=== PATIENT | male | born 1970 | race Caucasian/White ===

== ENCOUNTER 2018-07-23 18:21 | Inpatient (IN) | payer BC, MEDICAID, MEDICARE ==
[~2018-07-23] VITALS: Ht 188 cm; Wt 133.1 kg
[~2018-07-23 18:21] MED LIST: ACET-683 PO; ACET1TAB55 PO; ACYC400T PO; ALBU17IN INH; ALDA25TA2 PO; ALLO10TA PO; AMLO10TA5 PO; AMOX500T2 PO; ASPI1TAB PO; AUGM875T28 PO; BUME1TAB3 PO; BYST5TAB2 PO; DILA2TAB6 PO; FLOM0.4C39 PO; HYDR-3910 PO; HYDR-3911 PO; HYDR2TAB2 PO; MAGN1TAB25 PO; METO1TAB33 PO; METO1TAB7 PO; OMEP40CA2 PO; OXYC-404 PO; PRED5TA PO; PRIL20TA2 PO; PROBCAP4 PO; PROG1CAP10 PO; SIRO1TAB4 PO; VITA200015 PO
[2018-07-23] MEDS ORDERED: GABA-845 PO (18:52)
[2018-07-23] MEDS ORDERED: HYDR25TAB PO (18:52)
[2018-07-23] MEDS ORDERED: MYCO1TAB PO (18:52)
[2018-07-23] MEDS ORDERED: NULO250I IV (18:52)
[2018-07-23] MEDS ORDERED: HYDR50TA PO (18:52)
[2018-07-23] MEDS ORDERED: METO1TAB7 PO (18:52)
[2018-07-23 19:34] LABS: HEMATOCRIT 35.3 % (42.0-52.0); HEMOGLOBIN 11.3 g/dl (13.5-17.5); LYMPH # 0.4 10^3/uL (1.5-4.5); LYMPH % 17.3 % (24.0-44.0); MEAN CORPUSCULAR HEMOGLOBIN 26.7 pg (27.0-33.0); MEAN CORPUSCULAR VOLUME 83.3 fl (80.0-96.0); MONO # 0.1 10^3/uL (0.0-0.8); MONO % 3.6 % (0.0-5.0); NEUTROPHILS # 1.8 10^3/uL (1.8-7.7); NEUTROPHILS % 78.2 % (36.0-66.0); PLATELET COUNT, AUTOMATED 104 10^3/uL (150-450); RED BLOOD COUNT 4.24 10^6/uL (4.30-6.10); WHITE BLOOD COUNT 2.3 10^3/uL (4.0-10.0)
[2018-07-23 19:57] LABS: ALBUMIN 2.9 GM/DL (3.2-5.2); BILIRUBIN,DIRECT 0.2 MG/DL (0.0-0.2); BILIRUBIN,TOTAL 0.4 MG/DL (0.2-1.0); CALCIUM LEVEL 6.6 MG/DL (8.5-10.1); CREATININE FOR GFR 4.95 MG/DL (0.70-1.30); GLOMERULAR FILTRATION RATE 13.3 (>56); TOTAL PROTEIN 5.3 GM/DL (6.4-8.2)
[2018-07-23 20:54] LABS: INR 1.1; PROTHROMBIN TIME 14.3 SECONDS (12.1-14.4)
[2018-07-23 20:55] LABS: PARTIAL THROMBOPLASTIN TIME 43.4 SECONDS (25.4-37.6)
[2018-07-23] MEDS ORDERED: HYDROMORPHONE HCL 0.5 MG/ 0.5 ML SYRINGE (J1170 PER 1) IV PRN (21:15)
[2018-07-23] MEDS ORDERED: ONDANSETRON 4MG/2ML VIAL (J2405) IV ONE (21:15)
[2018-07-23] MEDS: GASTROGRAFIN SOLUTION 30ML PO SCH ×2 (21:30→21:56)
[2018-07-23] MEDS ORDERED: NS 1,000 ML IV ONE (21:30)
--- NOTE | 2018-07-24 00:40 | REPVR ---
EXAM: CT Abdomen and Pelvis Without Contrast EXAM DATE/TIME: 07/23/2018 10:50 PM CLINICAL HISTORY: 48 years old, male; Pain and signs and symptoms; Nausea and vomiting and other: Diarrhea; Abdominal pain; Generalized; Additional info: Abd pain, n/v/d, febrile, HX of renal transplant TECHNIQUE: Axial computed tomography images of the abdomen and pelvis without contrast. All CT scans at this facility use at least one of these dose optimization techniques: automated exposure control; mA and/or kV adjustment per patient size (includes targeted exams where dose is matched to clinical indication); or iterative reconstruction. Coronal and sagittal reformatted images were created and reviewed. COMPARISON: CT ABD PELVIS W/O CONTRAST 05/22/2016 11:51 AM FINDINGS: Limitations: Examination is limited by motion artifact. Lower thorax: Patchy ground glass opacities in the lung bases bilaterally. ABDOMEN: Liver: Multiple circumscribed cystic lesions measuring up to 5.2 cm. Gallbladder and bile ducts: Vicarious excretion of contrast in the gallbladder. No gall bladder wall thickening. No ductal dilation. Pancreas: Normal. No ductal dilation. Spleen: Normal. No splenomegaly. Adrenals: Normal. No mass. Kidneys and ureters: [place] kidneys are not visualized. Focal density in the left renal bed just medial to the spleen measuring 3.3 x 2.3 cm. Stomach and bowel: Normal. No obstruction. No mucosal thickening. Negative for colonic diverticulitis. Appendix: Appendix is normal. PELVIS: Bladder: Unremarkable as visualized. Reproductive: Prostate is normal in size. Transplant kidney: Status post transplant kidney in the right iliac fossa. Mild nonspecific perinephric stranding. No hydronephrosis. No renal stones. No perinephric fluid collections. ABDOMEN and PELVIS: Intraperitoneal space: Normal. No free air. No significant fluid collection. Bones/joints: Moderate degenerative spine. Soft tissues: There is dependent subcutaneous edema. Post surgical changes in the ventral right lower quadrant. Interstitial lateral ventral abdominal hernia (Spigelian hernia) containing bowel. No evidence of incarcerated bowel. Vasculature: Moderate calcified atherosclerotic disease. Lymph nodes: Normal. No enlarged lymph nodes. IMPRESSION: Status post transplant kidney in the right iliac fossa. Polycystic liver. No followup is necessary. Interstitial lateral ventral abdominal hernia (Spigelian hernia) containing bowel. Unchanged from prior. Focal density in the left renal bed just medial to the spleen. Fluid collection versus postop changes. Patchy ground glass opacities in the lung bases bilaterally. Pneumonia versus pulmonary edema versus hemorrhage versus pneumonitis. Additional findings as described. Electronically signed by: Allen Nuno On 07/24/2018 00:40:06 AM
[2018-07-24] MEDS ORDERED: PIPERACILLIN/TAZOBACTAM SOD 2.25 GM in D5W MINI-BAG PLUS 50 ML IV ONE (01:30)
[2018-07-24] MEDS ORDERED: NS 1,000 ML IV ONE (01:45)
[2018-07-24] MEDS ORDERED: CALCIUM GLUCONATE 1,000 MG in D5W MINI-BAG PLUS 100 ML IV ONE (01:45)
[2018-07-24] MEDS ORDERED: LR 1,000 ML IV SCH (01:45)
[2018-07-24] MEDS ORDERED: NS 1,000 ML IV SCH ×2 (01:45→08:25)
[2018-07-24] MEDS ORDERED: IPRATROPIUM 0.5MG/ALBUTEROL 2.5MG INH SOL UD 3ML (DUONEB)(J7620) NEB PRN (01:45)
[2018-07-24] MEDS ORDERED: POTASSIUM CHLORIDE 10 MEQ SR TABLET PO SCH (02:00)
[2018-07-24] MEDS ORDERED: VENTAER INH (02:12)
[2018-07-24] MEDS ORDERED: METO1TAB87 PO (02:12)
[2018-07-24] MEDS ORDERED: NEUR300C PO ×2 (02:12)
[2018-07-24] MEDS ORDERED: HYDR25TA PO (02:12)
[2018-07-24] MEDS ORDERED: AMLO25TA PO (02:12)
[2018-07-24] MEDS ORDERED: DILA2TAB6 PO (02:16)
[2018-07-24] MEDS ORDERED: FLUO1CRE2 EX (02:18)
[2018-07-24] MEDS ORDERED: FLON1SPR (02:18)
[2018-07-24] MEDS ORDERED: FLUO1CRE2 TOP (02:24)
[2018-07-24] MEDS ORDERED: LOTRCRE TOP (02:24)
[2018-07-24] MEDS ORDERED: COLA100C5 PO (02:24)
[2018-07-24] MEDS ORDERED: FURO20TA2 PO (02:24)
[2018-07-24] MEDS ORDERED: PROBCAP4 PO (02:24)
[2018-07-24] MEDS ORDERED: VITA10002 PO (02:24)
[2018-07-24] MEDS ORDERED: CALC500C16 PO (02:26)
[2018-07-24] MEDS ORDERED: HYDR25OI TOP (02:26)
[2018-07-24] MEDS ORDERED: ULOR80TA PO (02:26)
[2018-07-24] MEDS ORDERED: ZOFR4TAB16 PO (02:27)
[2018-07-24] MEDS ORDERED: FLUTICASONE PROP 0.05% NASAL SPRAY 16 GM (FLONASE) PRN (02:30)
[2018-07-24] MEDS ORDERED: CALCIUM CARBONATE 500 MG CHEW U/D PO PRN (02:30)
[2018-07-24] MEDS: DOXYCYCLINE HYCLATE 100 MG in D5W MINI-BAG PLUS 100 ML IV SCH ×2 (03:20→16:12)
[2018-07-24] MEDS ORDERED: AZITHROMYCIN INJ 500 MG, VIAL MATE ADAPTER 1 EACH in D5W 250 ML IV SCH (05:00)
[2018-07-24] MEDS: cefTRIAXone SOD 1 GM in D5W MINI-BAG PLUS 50 ML IV SCH (05:31)
[2018-07-24] MEDS ORDERED: HEPARIN SOD (PORCINE) 5000 UNITS/ML VIAL SC SCH (06:00)
--- NOTE | 2018-07-24 07:42 | HPE ---
DATE OF ADMISSION: 07/24/2018 CHIEF COMPLAINT: Nausea, vomiting, abdominal pain, diarrhea for the past 2-1/2 to 3 weeks, followed by cough and shortness of breath for the previous 2-3 days. HISTORY OF PRESENT ILLNESS: The patient is a 48-year-old male with significant past medical history positive for kidney disease which resulted end stage renal disease, he was previously on dialysis, he is status post renal transplant 06/2015, now on immunosuppression. He is no longer on dialysis. He has a history of gout, hypertension, neuropathy. He presents to the emergency room with diffuse abdominal pain for the past 2-3 weeks with multiple episodes of nonbloody, nonbilious vomiting, decreased by mouth intake. He states that he is also having some loose stools. He saw his primary care physician who believed that he has a viral gastroenteritis. This continued to persists. He then subsequently developed a cough of whitish productive sputum and shortness of breath on exertion over the past two days. No sick contact. On presentation to the emergency room, he continues to complain of diffuse abdominal pain, nausea, vomiting, decreased by mouth intake. He has a lipase of 1700 and he also has what appears to be right lower lobe pneumonia on chest x-ray. PAST MEDICAL HISTORY: See history of present illness. PAST SURGICAL HISTORY: He has had renal transplant. Fistula placement. He had coiling of the kidneys. Hernia repair. ALLERGIES: 1. MORPHINE. SOCIAL HISTORY: He denies alcohol or illicit drug use. He is a former smoker. FAMILY HISTORY: Polycystic kidney disease. HOME MEDICATIONS: As per the EMR: - Tylenol - albuterol - Norvasc - NULOJIX infusions every month. He had this recently. - gabapentin - hydralazine - hydrochlorothiazide - Dilaudid - metoprolol - omeprazole - prednisone - tamsulosin - CellCept REVIEW OF SYSTEMS: A 12 point review of systems was completed, all of which were negative except those listed in the history of present illness. VITAL SIGNS ON ADMISSION: T-max of 101.3, pulse of 85, respirations of 23, satting at initially 86% on room air, with 2 liters nasal cannula 94%, blood pressure 141/61. PHYSICAL EXAMINATION: GENERAL: He is in mild distress secondary to abdominal pain. He is well nourished. HEAD: Normocephalic, atraumatic. EYES: Extraocular movements are intact. Pupils equal, round, reactive to light. NECK: Supple. No jugular venous pressure (JVP). LUNGS: There is right basilar crackles, no wheezing. CARDIOVASCULAR: Regular rate and rhythm. Normal S1 and S2. No murmurs, gallops, or rubs. ABDOMEN: Obese, tender to deep palpation, but rebound or guarding. Positive bowel sounds. EXTREMITIES: No pitting edema or calf tenderness. SKIN: Intact. No rashes, lesions or breakdowns. NEUROLOGICAL EXAM: Alert and oriented times three. No focal deficits appreciated on exam. LABS AND IMAGING: White count of 2.3, hemoglobin and hematocrit of 11/35, platelet count of 104. He has a history of thrombocytopenia from 05/27 his labs showed also a low platelet count. Coags within normal limits. Chemistries showed sodium of 133, potassium 3.0, BUN and creatinine of 59/4.95. His baseline creatinine appears to be around 2.2. Calcium is 6.6, corrected calcium is 7.5. LFTs within normal limits, proBNP of 154, lipase of 1600. CT of the abdomen and pelvis shows status post transplant kidney in the iliac fossa, polycystic liver. Interstitial lateral ventral abdominal hernia containing bowel. Unchanged from prior. Focal density in the left renal bed just medial to the spleen. Fluid collection versus postop changes. Patchy ground glass opacities in the lung bases bilaterally. Chest x-ray shows hazy bilateral changes worse on the right. ASSESSMENT/PLAN: The patient has sepsis secondary to community acquired pneumonia. He is immunocompromised. Will cover the patient with ceftriaxone and doxycycline. Sputum culture, urine legionella, urine pneumococcal antigen. Oxygen as needed. Albuterol as needed. Abdominal pain I likely believe this is secondary to pancreatitis. He has diffuse abdominal pain. Will fluid hydrate aggressively. He has already received a liter in the emergency room. Will also give another liter. Will place the patient on Lactated Ringer's on 150 mL/hour. Nothing by mouth, advance diet as tolerated. Dilaudid as needed for pain. Zofran as needed for nausea and vomiting. Will send a lipid profile to assess hypertriglyceridemia. He has no hypercalcemia. He has hypocalcemia. I will replenish with calcium and will replenish with potassium. For acute on chronic renal failure, this is likely secondary to dehydration and also in the setting of sepsis. Will send urine lytes. CT abdomen and pelvis noted. Will fluid hydrate. Will trend renal function. Documentation Engineer Dr. Ferris to see him in the morning. Will hold all nephrotoxic medications. For the rest of his chronic medical conditions, for benign prostatic hypertrophy (BPH) will continue Flomax. For hypertension will continue hydralazine. Will hold the diuretics in the setting of dehydration. For gout, will continue allopurinol. For hypertension also continue metoprolol. Positive for kidney disease status post transplant. Will continue his CellCept and prednisone. Supportive deep vein thrombosis (DVT) prophylaxis. Sequential compression devices (SCD). Gastrointestinal (GI) prophylaxis not indicated. Diet nothing by mouth, advance as tolerated.
[2018-07-24] MEDS ORDERED: POTASSIUM CHLORIDE 10 MEQ SR TABLET PO ONE (08:00)
[2018-07-24] MEDS ORDERED: ACETAMINOPHEN 500 MG TAB As Ordered ONE (08:10)
[2018-07-24] MEDS: CYANOCOBALAMIN 500 MCG TAB PO SCH (08:18)
[2018-07-24] MEDS: **hydrALAZINE HCL** 25 MG TAB PO SCH ×3 (08:18→22:03)
[2018-07-24] MEDS: LACTOBACILLUS ACIDOPHILUS CAP (BACID) PO SCH ×2 (08:18→17:33)
[2018-07-24] MEDS: METOPROLOL TART 25 MG TABLET PO SCH ×2 (08:18→22:03)
[2018-07-24] MEDS: TAMSULOSIN 0.4 MG CAP PO SCH (08:18)
[2018-07-24] MEDS: OMEPRAZOLE 20 MG CAP PO SCH (08:18)
[2018-07-24] MEDS: FEBUXOSTAT 40 MG TABLET (ULORIC) PO SCH (08:18)
[2018-07-24 08:19] VITALS: BP 168/75
[2018-07-24] MEDS: predniSONE 5 MG TAB PO SCH (08:19)
[2018-07-24] MEDS: MYCOPHENOLIC ACID 180 MG PO SCH ×2 (09:00→22:03)
[2018-07-24] MEDS ORDERED: ENTER DRUG NAME HERE (PATIENT'S OWN MED) PO SCH (09:00)
[2018-07-24] MEDS: ONDANSETRON 4MG/2ML VIAL (J2405) IV PRN (09:00)
[2018-07-24] MEDS ORDERED: GABAPENTIN 300 MG CAP PO SCH ×2 (09:00)
[2018-07-24 10:05] LABS: POTASSIUM RANDOM URINE 23.9 MEQ/L
[2018-07-24 10:57] LABS: CALCIUM LEVEL 6.8 MG/DL (8.5-10.1); CREATININE FOR GFR 4.4 MG/DL (0.70-1.30); GLOMERULAR FILTRATION RATE 15.2 (>56); POTASSIUM SERUM 3.5 MEQ/L (3.5-5.1)
[2018-07-24 10:59] LABS: CHOLESTEROL RISK RATIO 3.652 (<5)
--- NOTE | 2018-07-24 11:00 | REP ---
AP PORTABLE CHEST: 07/24/2018. COMPARISON: CT abdomen 07/23/2018, chest x-ray 05/19/2016. CLINICAL HISTORY: Cough, pneumonia. FINDINGS: There are bibasilar infiltrates, right greater than left. I do not see definite effusion. Mid and upper lung zones are clear. Heart size borderline. There is no vascular redistribution or edema. Aorta and airway intact. IMPRESSION: 1. Bibasilar infiltrates, more extensive right than left. No definite effusion. Mid and upper lung zones clear. 2. Borderline heart size. No pulmonary edema. Electronically Signed by Gallo Denton MD 07/24/2018 11:25 A
[2018-07-24 12:00] VITALS: BP 134/69
[2018-07-24 13:45] VITALS: BP 102/60
[2018-07-24] MEDS: ACETAMINOPHEN 500 MG TAB PO PRN (16:13)
[2018-07-24] MEDS: HYDROMORPHONE HCL 0.5 MG/ 0.5 ML SYRINGE (J1170 PER 1) IV PRN ×2 (16:39→22:12)
[2018-07-24 22:00] VITALS: BP 142/76
[2018-07-25] MEDS: HYDROMORPHONE HCL 0.5 MG/ 0.5 ML SYRINGE (J1170 PER 1) IV PRN ×4 (02:14→15:19)
[2018-07-25] MEDS: DOXYCYCLINE HYCLATE 100 MG in D5W MINI-BAG PLUS 100 ML IV SCH ×2 (04:28→15:11)
[2018-07-25] MEDS: ONDANSETRON 4MG/2ML VIAL (J2405) IV PRN ×3 (04:47→15:19)
[2018-07-25] MEDS: ACETAMINOPHEN 500 MG TAB PO PRN ×3 (04:48→23:16)
[2018-07-25] MEDS: cefTRIAXone SOD 1 GM in D5W MINI-BAG PLUS 50 ML IV SCH (05:49)
[2018-07-25 06:00] VITALS: BP 143/75
[2018-07-25 06:30] LABS: HEMATOCRIT 34.6 % (42.0-52.0); HEMOGLOBIN 10.9 g/dl (13.5-17.5); MEAN CORPUSCULAR HEMOGLOBIN 26.2 pg (27.0-33.0); MEAN CORPUSCULAR HGB CONC 31.5 g/dl (32.0-36.5); MEAN CORPUSCULAR VOLUME 83.2 fl (80.0-96.0); PLATELET COUNT, AUTOMATED 117 10^3/uL (150-450); RED BLOOD COUNT 4.16 10^6/uL (4.30-6.10); WHITE BLOOD COUNT 2.1 10^3/uL (4.0-10.0)
[2018-07-25 06:52] LABS: CALCIUM LEVEL 6.9 MG/DL (8.5-10.1); CREATININE FOR GFR 4.53 MG/DL (0.70-1.30); GLOMERULAR FILTRATION RATE 14.7 (>56); POTASSIUM SERUM 3.2 MEQ/L (3.5-5.1)
[2018-07-25] MEDS: **hydrALAZINE HCL** 25 MG TAB PO SCH ×2 (08:09→20:34)
[2018-07-25] MEDS ORDERED: INFLUENZA QUADRIVALENT PF VACCINE 0.5ML SYRINGE (90686) IM ONE (09:00)
[2018-07-25] MEDS: TAMSULOSIN 0.4 MG CAP PO SCH (09:08)
[2018-07-25] MEDS: predniSONE 5 MG TAB PO SCH (09:08)
[2018-07-25] MEDS: LACTOBACILLUS ACIDOPHILUS CAP (BACID) PO SCH ×2 (09:08→18:00)
[2018-07-25] MEDS: CYANOCOBALAMIN 500 MCG TAB PO SCH (09:08)
[2018-07-25] MEDS: FEBUXOSTAT 40 MG TABLET (ULORIC) PO SCH (09:08)
[2018-07-25] MEDS: OMEPRAZOLE 20 MG CAP PO SCH (09:08)
[2018-07-25] MEDS: METOPROLOL TART 25 MG TABLET PO SCH ×2 (09:09→20:42)
[2018-07-25] MEDS: KCL 20MEQ in NS 1000ML 1,000 ML IV SCH ×2 (09:10→20:43)
[2018-07-25] MEDS ORDERED: HYDROMORPHONE HCL 0.5 MG/ 0.5 ML SYRINGE (J1170 PER 1) IV PRN (11:45)
[2018-07-25 14:00] VITALS: BP 196/84
--- NOTE | 2018-07-25 14:55 | IPNPDOC ---
Text Note Date of Service The patient was seen on 07/25/18. NOTE SUBJECTIVE: Continues to have coughing and severe lower abdominal pain mostly on the left. Continues to have fever. Continues to have brownish liquid stools. Patient very uncomfortable from the abdominal pain needing dilaudid every 3 hours. PHYSICAL EXAMINATION: GENERAL: He is in mild distress secondary to abdominal pain. He is well nourished. HEAD: Normocephalic, atraumatic. EYES: Extraocular movements are intact. Pupils equal, round, reactive to light. NECK: Supple. No jugular venous pressure (JVP). LUNGS: There is right basilar crackles, no wheezing. CARDIOVASCULAR: Regular rate and rhythm. Normal S1 and S2. No murmurs, gallops, or rubs. ABDOMEN: Obese, tender to deep palpation also has rebound tenderness. hyperactive bowel sounds. EXTREMITIES: No pitting edema or calf tenderness. SKIN: Intact. No rashes, lesions or breakdowns. Neuro: No focal neurodeficits. Labs and radiology : reviewed. 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 He saw his primary care physician who believed that he has a viral gastroenteritis. This continued to persist. He then subsequently developed a cough of whitish productive sputum and shortness of breath on exertion over the past two days. No sick contact. On presentation to the emergency room, he continues to complain of diffuse abdominal pain, nausea, vomiting, diarrhea and decreased oral intake.He was febrile to 101.7,Had creatinine elated from his baseline, had a lipase of 1700 and he also has what appears to be right lower lobe pneumonia on chest x-ray. He was admitted for Pneumonia and possible pancreatitis and FAITH on CKD Pnaumonia will continue with ceftriaxone and doxycycline await cultures Elevated lipase this is probably due to CKD. I do not see any signs of pancreatitis in ct abdomen Chronic lower abdominal pain this is now worse. will continue with dilaudid for pain control . continue gabapentin. Diarrhea and vomiting GI panel has been negative patient being on immunosuppresants will check for microspora and CMV pcr CMV colitis is a possibility so if diarrhea continues may need colonoscopy will continue with IVF. FAITH on CKD due to diarrhea and vomiting. will continue with IVF. Hold diuretics. Hypertension continue metoprolol, hydralazine, amlodipine PCKD [place] polycystic kidneys have been embolized also has polycystic liver disease Renal transplant continue with belatacept and prednisone will hold cellcept in view of diarrhea. Obesity complicating care Gout continue uloric DVT prophylaxis in place VS,Fishbone, I+O VS, Fishbone, I+O Laboratory Tests 07/25/18 06:16 Red Blood Count 4.16 L, Mean Corpuscular Volume 83.2, Mean Corpuscular Hemoglobin 26.2 L, Mean Corpuscular Hemoglobin Concent 31.5 L, Red Cell Distribution Width 16.0 H, Calcium Level 6.9 L Vital Signs Date Time Temp Pulse Resp B/P (MAP) Pulse Ox O2 Delivery O2 Flow Rate FiO2 07/25/18 09:39 2.0 07/25/18 09:21 18 07/25/18 09:09 87 146/78 07/25/18 06:30 98.6 07/25/18 06:00 90 07/24/18 07:47 Nasal Cannula I&O- Last 24 Hours up to 6 AM 07/25/18 06:00 Intake Total 2490 ml Output Total 1850 ml Balance 640 ml LESA HUMPHREY MD Jul 25, 2018 14:55
[2018-07-25 15:58] VITALS: BP 168/80
[2018-07-25] MEDS ORDERED: PERCOCET 5MG/325MG TAB PO ONE (20:30)
[2018-07-25 20:42] VITALS: BP 130/80
[2018-07-25 22:00] VITALS: BP 130/80
[2018-07-26] MEDS: DOXYCYCLINE HYCLATE 100 MG in D5W MINI-BAG PLUS 100 ML IV SCH (03:24)
[2018-07-26] MEDS: cefTRIAXone SOD 1 GM in D5W MINI-BAG PLUS 50 ML IV SCH (05:48)
[2018-07-26 06:00] VITALS: BP 133/79
[2018-07-26 06:23] LABS: HEMATOCRIT 38.6 % (42.0-52.0); HEMOGLOBIN 12.1 g/dl (13.5-17.5); MEAN CORPUSCULAR HEMOGLOBIN 26.7 pg (27.0-33.0); MEAN CORPUSCULAR HGB CONC 31.3 g/dl (32.0-36.5); PLATELET COUNT, AUTOMATED 129 10^3/uL (150-450); RED BLOOD COUNT 4.54 10^6/uL (4.30-6.10); WHITE BLOOD COUNT 2.8 10^3/uL (4.0-10.0)
[2018-07-26 06:51] LABS: CALCIUM LEVEL 7.5 MG/DL (8.5-10.1); CREATININE FOR GFR 4.52 MG/DL (0.70-1.30); GLOMERULAR FILTRATION RATE 14.8 (>56); POTASSIUM SERUM 3.8 MEQ/L (3.5-5.1)
[2018-07-26] MEDS: LACTOBACILLUS ACIDOPHILUS CAP (BACID) PO SCH ×2 (08:00→08:54)
[2018-07-26] MEDS: KCL 20MEQ in NS 1000ML 1,000 ML IV SCH ×2 (08:49→13:30)
[2018-07-26] MEDS: METOPROLOL TART 25 MG TABLET PO SCH ×2 (08:54→09:00)
[2018-07-26] MEDS: FEBUXOSTAT 40 MG TABLET (ULORIC) PO SCH ×2 (08:54→09:00)
[2018-07-26] MEDS: predniSONE 5 MG TAB PO SCH ×2 (08:54→09:00)
[2018-07-26] MEDS: OMEPRAZOLE 20 MG CAP PO SCH ×2 (08:54→09:00)
[2018-07-26] MEDS: **hydrALAZINE HCL** 25 MG TAB PO SCH ×2 (08:54→09:00)
[2018-07-26] MEDS: TAMSULOSIN 0.4 MG CAP PO SCH ×2 (08:55→09:00)
[2018-07-26] MEDS: CYANOCOBALAMIN 500 MCG TAB PO SCH ×2 (08:55→09:00)
[2018-07-26] MEDS: ACETAMINOPHEN 500 MG TAB PO PRN (09:02)
--- NOTE | 2018-07-26 10:44 | IPNPDOC ---
Date Seen The patient was seen on 07/26/18. Progress Note SUBJECTIVE: Pt remains febrile despite iv ceftriaxone and doxy for pneumonia tmax 101.5, lost iv access, andminimal response to ivfluids with unchanged creatinine. Pt c/o diarrhea watery nonbloody non mucusy and left lower quadrant abd pain without nausea or vomiting. GI and ID consulted. awaiting [facility] call for transfer per Dr. Ferris's recommendations. PHYSICAL EXAMINATION: GENERAL: He is in mild distress secondary to abdominal pain. He is well nourished. HEAD: Normocephalic, atraumatic. EYES: Extraocular movements are intact. Pupils equal, round, reactive to light. NECK: Supple. No jugular venous pressure (JVP). LUNGS: There is right basilar crackles, no wheezing. CARDIOVASCULAR: Regular rate and rhythm. Normal S1 and S2. No murmurs, gallops, or rubs. ABDOMEN: Obese, tender to deep palpation also has rebound tenderness. hyperactive bowel sounds. EXTREMITIES: No pitting edema or calf tenderness. SKIN: Intact. No rashes, lesions or breakdowns. Neuro: No focal neurodeficits. Labs and radiology : reviewed. 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 He saw his primary care physician who believed that he has a viral gastroenteritis. This continued to persist. He then subsequently developed a cough of whitish productive sputum and shortness of breath on exertion over the past two days. No sick contact. On presentation to the emergency room, he continues to complain of diffuse abdominal pain, nausea, vomiting, diarrhea and decreased oral intake.He was febrile to 101.7,Had creatinine elated from his baseline, had a lipase of 1700 and he also has what appears to be right lower lobe pneumonia on chest x-ray. He was admitted for Pneumonia and possible pancreatitis and FAITH on CKD Pnaumonia will continue with ceftriaxone and doxycycline await cultures ID consulted. sputum cx and respiratory panel. Elevated lipase this is probably due to CKD. I do not see any signs of pancreatitis in ct abdom en Chronic lower abdominal pain this is now worse. will continue with dilaudid for pain control . continue gabapentin. Diarrhea and vomiting GI panel has been negative patient being on immunosuppresants will check for microspora and CMV pcr CMV colitis is a possibility so if diarrhea continues may need colonoscopy will continue with IVF. GI Dr. Finley consulted. FAITH on CKD due to diarrhea and vomiting. will continue with IVF. Hold diuretics. no improvement. Per Nephrology, transfer to [facility] since no improvement with ivf. Hypertension continue metoprolol, hydralazine, amlodipine PCKD [place] polycystic kidneys have been embolized also has polycystic liver disease Renal transplant continue with belatacept and prednisone will hold cellcept in view of diarrhea. Obesity complicating care Gout continue uloric DVT prophylaxis in place disposition: awaiting acceptance to [facility]. GI and ID consulted. VS, I&O, 24H, Fishbone Vital Signs/I&O Vital Signs Date Time Temp Pulse Resp B/P (MAP) Pulse Ox O2 Delivery O2 Flow Rate FiO2 07/26/18 06:00 99.2 63 22 133/79 (97) 93 2.0 07/24/18 07:47 Nasal Cannula l I&O- Last 24 Hours up to 6 AM 07/26/18 06:00 Intake Total 690 ml Output Total 525 ml Balance 165 ml Laboratory Data 24H LABS Laboratory Tests 2 07/25/18 12:39: 07/26/18 06:09: Nucleated Red Blood Cells % (auto) 0.0, Anion Gap 11, Glomerular Filtration Rate 14.8L, Blood Urea Nitrogen 58H, Creatinine 4.52H, Sodium Level 137, Potassium Level 3.8, Chloride Level 107, Carbon Dioxide Level 19L, Calcium Level 7.5L CBC/BMP Laboratory Tests 07/26/18 06:09 Red Blood Count 4.54, Mean Corpuscular Volume 85.0, Mean Corpuscular Hemoglobin 26.7 L, Mean Corpuscular Hemoglobin Concent 31.3 L, Red Cell Distribution Width 16.3 H, Calcium Level 7.5 L Microbiology Microbiology 07/23/18 Blood Culture - Preliminary, Resulted No Growth after 48 hours. All Specime... 07/23/18 Blood Culture - Preliminary, Resulted No Growth after 48 hours. All Specime... 07/24/18 Gastrointestinal Tract Panel (PCR) - Final, Complete EVARISTO SEYMOUR MD Jul 26, 2018 07:18
[2018-07-26] MEDS ORDERED: LIDOCAINE 1% MDV 20ML VIAL As Ordered ONE (11:11)
--- NOTE | 2018-07-26 11:52 | CR ---
DATE OF CONSULTATION: 07/24/2018 CONSULTATION FOR: Luz Elena Medina MD REASON FOR CONSULTATION: Acute renal failure superimposed on chronic kidney disease in this gentleman with kidney transplant. NOTE: This consult was requested by Dr. Yoo from the emergency room last evening on behalf of hospitalist service and the patient is seen this morning. HISTORY OF PRESENT ILLNESS: Mr. Roe is a 48-year-old gentleman very well-known to our service. He has history of end-stage renal disease due to polycystic kidney disease and underwent kidney transplant in June 2015. He did have complications following transplant with delayed function and his kidney function has been somewhat diminished with baseline creatinine of about 2.5 mg/dL. He reports diarrhea for about 3 weeks and abdominal pain and vomiting for 1 week. He was seen by his primary physician and was felt to have viral problems due to which the patient was not advised to come to hospital. The patient felt much worse yesterday and came to the emergency room. He was felt to have acute renal failure superimposed on chronic kidney disease as his creatinine was up to 4.9. He had 12-15 loose stools per day and vomiting with abdominal pain. He was felt to have a pneumonia on his chest x-ray and has been admitted with the diagnosis of pneumonia and acute pancreatitis. A nephrology consultation was requested by emergency room physician last evening and the patient is seen this morning. PAST MEDICAL AND SURGICAL HISTORY: Significant for: 1. End-stage renal disease secondary to polycystic kidney disease, status post kidney transplant. 2. History of gout. 3. History of peripheral neuropathy. 4. History of hypertension. 5. History of chronic obstructive pulmonary artery disease (COPD). 6. History of benign prostatic hyperplasia (BPH). 7. History of chronic degenerative disc disease. PAST SURGICAL HISTORY: Significant for: Kidney transplant, AV fistula creation, a large incisional hernia repair and embolization of his [place] kidneys. ALLERGIES: The patient has allergy to MORPHINE. HOME MEDICATIONS: His home medications include Norvasc, Nulojix infusion every month for transplant, CellCept, prednisone, tamsulosin, omeprazole, metoprolol, Dilaudid, hydrochlorothiazide and hydralazine. PERSONAL AND SOCIAL HISTORY: The patient is and lives with his family. He does not smoke or drink. There is no history of drug use. Family history is significant for polycystic kidney disease. His mother was on dialysis due to end-stage renal disease and his sister also has polycystic kidneys and chronic kidney disease. REVIEW OF SYSTEMS: The patient reports fever and not feeling well for the last several days. Ears, nose and throat are unremarkable. He denies any headache at present. Cardiovascular system is negative for known coronary artery disease or congestive heart failure. He denies any chest pain. Respiratory system is significant for right lower lobe pneumonia and shortness of breath. He is currently using oxygen via nasal cannula. GI system is significant for vomiting, abdominal pain and diarrhea for about 3 weeks. system is significant for benign prostatic hyperplasia (BPH). He denies any dysuria or hematuria. Musculoskeletal system is significant for chronic lower back pain. Neurological system is significant for severe peripheral neuropathy. He also has history of gout but no recent acute flares. Hematological system is negative for anticoagulation. He does have a history of anemia. Psychosocial system is negative for depression or anxiety. Skin is negative for rash or ulcers. PHYSICAL EXAMINATION: The patient is lying in the bed in some distress due to abdominal pain and recurrent loose stools. His temperature is 98.8 degrees Fahrenheit, heart rate is 80 per minute and respiratory rate 20 per minute. Blood pressure is 104/60 mmHg and oxygen saturation 94% on 2 liters of oxygen. His head is atraumatic. There is no oral thrush or ulcers. Neck is supple and no JVD could be determined. Thyroid is not enlarged. Pupils are equal and reactive to light and sclera is anicteric. Heart sounds are regular and lungs sound clear to auscultation without any wheezing or rales. Abdomen is soft with significant tenderness in lower abdominal areas. Bowel sounds are hyperactive. Transplant kidney in right lower quadrant is nontender. Extremities have no cyanosis or clubbing. Skin has no rash or ulcers. Neurologically he is awake, alert and oriented times three. LABORATORY DATA: WBC count 2.3, hemoglobin 11.3 and hematocrit 35.3. Platelets 104. Sodium 133, potassium 3.0, CO2 of 23, BUN 59 and creatinine 4.95. Lactic acid level was 0.8. Calcium 6.6 and albumin 2.9. AST 59, ALT 31 and alkaline phosphatase 53. A pro- BNP level was 154. Urinalysis was not done, however, random urine sodium was checked which was 40 and potassium 23.9. PROBLEMS: 1. Acute renal failure superimposed on chronic kidney disease. The patient has a baseline creatinine of about 2.5 mg/dL. He has diarrhea for about 3 weeks and abdominal pain and vomiting for about a week. He is certainly dehydrated and I agree with IV fluid hydration and continued monitoring. We may have to even adjust the dose of his IV fluid as he still reports frequent loose stools. 2. Hypokalemia. His potassium level was 3.0 last evening and it is up to 3.5 today. This is most likely related to losses of potassium due to frequent loose stools and poor oral intake. Continue with potassium supplement and monitor electrolytes again tomorrow morning. 3. Diarrhea and abdominal pain. The patient did have a CAT scan of abdomen and pelvis done in the emergency room which did not show any acute intra-abdominal problems. We will need to monitor closely as he is immunocompromised and also has severe diarrhea for several days. I am concerned about possibility of colitis. He is receiving antibiotics which will hopefully help. His stool has already been tested negative for C diff. 4. Hypertension. Blood pressure is somewhat low and antihypertensives should be held for a systolic blood pressure less than 120 mmHg. Once his diarrhea improves and volume status improves then his blood pressure is likely to improve. I would suggest to continue with IV fluid hydration. 5. Elevated lipase level. I am not certain if this is the root of acute pancreatitis as his amylase was normal at 95 and lipase was elevated. I am concerned about possibility of antritis and colitis with involvement of the mesentery. We will have to recheck his amylase and lipase tomorrow morning. He has no pain in the epigastric area or back which would suggest for acute pancreatitis. 6. Pneumonia. The patient is being treated with broad-spectrum antibiotics including ceftriaxone and doxycycline. 7. Kidney transplant status. I would suggest to continue with his chronic immunosuppressive therapy. We will have to probably give him a stress dose of steroids as he has been on chronic steroid therapy with acute illness now. Thank you for involving me in the care of Mr. Roe. I will follow him along with you.
[2018-07-26] MEDS: HYDROMORPHONE HCL 0.5 MG/ 0.5 ML SYRINGE (J1170 PER 1) IV PRN (13:09)
[2018-07-26] MEDS: ONDANSETRON 4MG/2ML VIAL (J2405) IV PRN (13:09)
[2018-07-26] MEDS ORDERED: DOXY-350 IV (13:24)
[2018-07-26] MEDS ORDERED: CEFT1INJ3 IV (13:24)
[2018-07-26] MEDS ORDERED: SODIUM CHLORIDE 0.9% INJ 10 ML SYR IV PRN (13:30)
--- NOTE | 2018-07-26 13:34 | DS.PDOC ---
Discharge Summary General Date of Admission Jul 24, 2018 at 01:40 Date of Discharge 07/26/[address] ALVARADO, [facility] REASON FOR TRANSFER: RENAL TRANSPLANT, ACUTE ON CKD Discharge Summary PROCEDURES PERFORMED DURING STAY: 07/26/18 PICC LINE FOR POOR IV TIP INSERTER: DR. OLGUIN , [employer] APPRENTICE DISCHARGE DIAGNOSES: End-stage renal disease secondary to polycystic kidney disease, status post kidney transplant [address] [facility]. Acute on CKD Diarrhea Pneumonia Dehydration Metabolic acidosis Elevated lipase Abdominal pain History of gout. History of peripheral neuropathy. History of hypertension. History of chronic obstructive pulmonary artery disease (COPD). History of benign prostatic hyperplasia (BPH). History of chronic degenerative disc disease. DISCHARGE MEDICATIONS: Please see below. 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 He saw his primary care physician who believed that he has a viral gastroenteritis. This continued to persist. He then subsequently developed a cough of whitish productive sputum and shortness of breath on exertion over the past two days. No sick contact. On presentation to the emergency room, he continues to complain of diffuse abdominal pain, nausea, vomiting, diarrhea and decreased oral intake.He was febrile to 101.7,Had creatinine elated from his baseline, had a lipase of 1700 and he also has what appears to be right lower lobe pneumonia on chest x-ray. He was admitted for Pneumonia and possible pancreatitis and FAITH on CKD HOSPITAL COURSE: Pneumonia will continue with ceftriaxone and doxycycline await cultures ID consulted. sputum cx and respiratory panel. Elevated lipase this is probably due to CKD. I do not see any signs of pancreatitis in ct abdomen Chronic lower abdominal pain this is now worse. will continue with dilaudid for pain control . continue gabapentin. Diarrhea and vomiting GI panel has been negative patient being on immunosuppresants will check for microspora and CMV pcr CMV colitis is a possibility so if diarrhea continues may need colonoscopy will continue with IVF. GI Dr. Finley consulted. FAITH on CKD due to diarrhea and vomiting. will continue with IVF. Hold diuretics. no improvement. Per Nephrology, transfer to [facility] since no improvement with ivf. Hypertension continue metoprolol, hydralazine, amlodipine PCKD [place] polycystic kidneys have been embolized also has polycystic liver disease Renal transplant continue with belatacept and prednisone will hold cellcept in view of diarrhea. Obesity complicating care Gout continue uloric ALLERGIES: Please see below. PHYSICAL EXAMINATION ON DISCHARGE: VITAL SIGNS: Please see below. GENERAL: He is in mild distress secondary to abdominal pain. He is well no urished. HEAD: Normocephalic, atraumatic. EYES: Extraocular movements are intact. Pupils equal, round, reactive to light. NECK: Supple. No jugular venous pressure (JVP). LUNGS: There is right basilar crackles, no wheezing. CARDIOVASCULAR: Regular rate and rhythm. Normal S1 and S2. No murmurs, gallops, or rubs. ABDOMEN: Obese, tender to deep palpation also has rebound tenderness in left l ower quadrant. hyperactive bowel sounds. EXTREMITIES: No pitting edema or calf tenderness. SKIN: Intact. No rashes, lesions or breakdowns. Neuro: No focal neurodeficits. LABORATORY DATA: Please see below. MICROBIOLOGY: GASTROINTESTINAL (GI) PANEL Final NEGATIVE by MULTIPLEXED NUCLEIC ACID PCR This Gastrointestinal PCR Panel detects the following bacteria, parasites and viruses: Campylobacter (jejuni, coli and upsaliensis), Clostridium difficile (toxin A/B), Plesiomonas shigelloides, Salmonella, Yersinia enterocolitica, Vibrio (parahaemolyticus, vulnificus and cholerae), Vibrio clolerae, Enteroaggregative E. coli (EAEC), Enteropathogenis E. coli (EPEC), Enterotoxigenic E. coli (ETEC) it/st, Shiga-like producing E. coli (STEC) stx1/stc2, E.coli O157, Shigella/Enteroinvasive E. coli (EIEC), Cryptosporidium, Cyclospora cayetanensis, Entamoeba histolytica, Giardia lamblia, Adenovirus F 40/41, Astrovirus, Norovirus GI/GII, Rotavirus A and Sapovirus (I, II, IV, V). 2/16/19 BLOOD CULTURES: NEGATIVE IMAGING: EXAM: CT Abdomen and Pelvis Without Contrast EXAM DATE/TIME: 07/23/2018 10:50 PM CLINICAL HISTORY: 48 years old, male; Pain and signs and symptoms; Nausea and vomiting and other: Diarrhea; Abdominal pain; Generalized; Additional info: Abd pain, n/v/d, febrile, HX of renal transplant TECHNIQUE: Axial computed tomography images of the abdomen and pelvis without contrast. All CT scans at this facility use at least one of these dose optimization techniques: automated exposure control; mA and/or kV adjustment per patient size (includes targeted exams where dose is matched to clinical indication); or iterative reconstruction. Coronal and sagittal reformatted images were created and reviewed. COMPARISON: CT ABD PELVIS W/O CONTRAST 05/22/2016 11:51 AM FINDINGS: Limitations: Examination is limited by motion artifact. Lower thorax: Patchy ground glass opacities in the lung bases bilaterally. ABDOMEN: Liver: Multiple circumscribed cystic lesions measuring up to 5.2 cm. Gallbladder and bile ducts: Vicarious excretion of contrast in the gallbladder. No gall bladder wall thickening. No ductal dilation. Pancreas: Normal. No ductal dilation. Spleen: Normal. No splenomegaly. Adrenals: Normal. No mass. Kidneys and ureters: [place] kidneys are not visualized. Focal density in the left renal bed just medial to the spleen measuring 3.3 x 2.3 cm. Stomach and bowel: Normal. No obstruction. No mucosal thickening. Negative for colonic diverticulitis. Appendix: Appendix is normal. PELVIS: Bladder: Unremarkable as visualized. Reproductive: Prostate is normal in size. Transplant kidney: Status post transplant kidney in the right iliac fossa. Mild nonspecific perinephric stranding. No hydronephrosis. No renal stones. No perinephric fluid collections. ABDOMEN and PELVIS: Intraperitoneal space: Normal. No free air. No significant fluid collection. Bones/joints: Moderate degenerative spine. Soft tissues: There is dependent subcutaneous edema. Post surgical changes in the ventral right lower quadrant. Interstitial lateral ventral abdominal hernia (Spigelian hernia) containing bowel. No evidence of incarcerated bowel. Vasculature: Moderate calcified atherosclerotic disease. Lymph nodes: Normal. No enlarged lymph nodes. IMPRESSION: Status post transplant kidney in the right iliac fossa. Polycystic liver. No followup is necessary. Interstitial lateral ventral abdominal hernia (Spigelian hernia) containing bowel. Unchanged from prior. Focal density in the left renal bed just medial to the spleen. Fluid collection versus postop changes. Patchy ground glass opacities in the lung bases bilaterally. Pneumonia versus pulmonary edema versus hemorrhage versus pneumonitis. Additional findings as described. Electronically signed by: Red Nuno On 07/24/2018 00:40:06 AM DD: RED NUNO MD 07/23/182249 DT: JHONY 07/24/1839 DS: EMMY 07/24/1839 [facility] NAME: RAMAKRISHNA CHACON JR DATE OF : 1970 AGE: 48 SEX: M REPORT #: [id number] ROOM: ED INP TECHNOLOGIST: VALENTE DOCTOR: COLE PHILIP DO Ordered for Date&Time: 07/24/18 0128 cc: [~ rep ct ivnm] Service Date&Time: 07/24/18 0155 This report is in Signed status. If this report is in a DRAFT status it has not yet been reviewed by the radiologist for accuracy. Thank you for having your radiology procedures performed at [facility] RADIOLOGY REPORT Date&Time printed: [~ rep prt dt last] [~ rep prt tm last] Page 1 of [address] [place] [id number] RADIOLOGY REPORT This report is in Signed status. If this report is in a DRAFT status it has not yet been reviewed by the radiologist for accuracy. Thank you for having your radiology procedures performed at [facility] RADIOLOGY REPORT Date&Time printed: [~ rep prt dt last] [~ rep prt tm last] Page 1 of 1 AP PORTABLE CHEST: 07/24/2018. COMPARISON: CT abdomen 07/23/2018, chest x-ray 05/19/2016. CLINICAL HISTORY: Cough, pneumonia. FINDINGS: There are bibasilar infiltrates, right greater than left. I do not see definite effusion. Mid and upper lung zones are clear. Heart size borderline. There is no vascular redistribution or edema. Aorta and airway intact. IMPRESSION: 1. Bibasilar infiltrates, more extensive right than left. No definite effusion. Mid and upper lung zones clear. 2. Borderline heart size. No pulmonary edema. Electronically Signed by Gallo Denton MD 07/24/2018 11:25 A DD: Gallo Denton MD 07/24/18 0828 DT: LEX 07/24/18 1039 DS: ANNA 07/24/18 1125 07/24/18 1125 [~ rep ct labl] TIME SPENT ON DISCHARGE: Greater than 30 minutes. Vital Signs/I&Os Vital Signs Date Time Temp Pulse Resp B/P (MAP) Pulse Ox O2 Delivery O2 Flow Rate FiO2 07/26/18 13:09 18 07/26/18 10:53 99.1 07/26/18 09:00 2.0 07/26/18 08:54 137/65 07/26/18 06:00 63 93 07/24/18 07:47 Nasal Cannula I&O- Last 24 Hours up to 6 AM 07/26/18 06:00 Intake Total 690 ml Output Total 525 ml Balance 165 ml Laboratory Data Labs 24H Laboratory Tests 2 07/26/18 06:09: Nucleated Red Blood Cells % (auto) 0.0, Anion Gap 11, Glomerular Filtration Rate 14.8L, Blood Urea Nitrogen 58H, Creatinine 4.52H, Sodium Level 137, Potassium Level 3.8, Chloride Level 107, Carbon Dioxide Level 19L, Calcium Level 7.5L 07/26/18 11:00: CBC/BMP Laboratory Tests 07/26/18 06:09 Red Blood Count 4.54, Mean Corpuscular Volume 85.0, Mean Corpuscular Hemoglobin 26.7 L, Mean Corpuscular Hemoglobin Concent 31.3 L, Red Cell Distribution Width 16.3 H, Calcium Level 7.5 L Microbiology Microbiology 07/23/18 Blood Culture - Preliminary, Resulted No Growth after 48 hours. All Specime... 07/23/18 Blood Culture - Preliminary, Resulted No Growth after 48 hours. All Specime... 07/24/18 Gastrointestinal Tract Panel (PCR) - Final, Complete Discharge Medications Scheduled (Fluorouracil) 5 % Cre, 1 APLCT TOP ASDIRECTED, (Reported) Amlodipine Besylate (Norvasc) 2.5 Mg Tab, 2.5 MG PO DAILY, (Reported) Betamethasone/Clotrimazole (Lotrisone 1-0.05 %) 1 Cre Cre, 1 APLCT TOP ASDIRECTED, (Reported) Ceftriaxone Sodium (Ceftriaxone Sodium) 1 Gm Inj, 1 GRAM IV DAILY Cyanocobalamin (Vitamin B-12) 1,000 Mcg Tab, 1,000 MCG PO DAILY, (Reported) Doxycycline Hyclate (Doxycycline) 100 Mg Cap, 100 MG IV Q12H Febuxostat (Uloric) 80 Mg Tab, 80 MG PO DAILY, (Reported) Lactobacillus Acidophilus (Probiotic) 1 Cap Cap, 1 CAP PO DAILY, (Reported) Omeprazole (Omeprazole) 40 Mg Cap, 40 MG PO DAILY, (Reported) Prednisone (Prednisone) 5 Mg Tab, 5 MG PO DAILY, (Reported) Tamsulosin Hydrochloride (Flomax) 0.4 Mg Cap, 0.4 MG PO DAILY, (Reported) Scheduled PRN Acetaminophen (Acetaminophen Extra Stren) 500 Mg Tab, 1,000 MG PO QID PRN for PAIN / FEVER, (Reported) Albuterol Sulfate (Ventolin Hfa) 108 Mcg/Act Aer, 2 PUFFS INH QID PRN for SHORTNESS OF BREATH, (Reported) Calcium Carbonate (Calcium Carbonate) 500 Mg Chw, 500 MG PO DAILY PRN for IND IGESTION, (Reported) Docusate Sodium (Colace) 100 Mg Cap, 100 MG PO DAILY PRN for CONSTIPATION, (Reported) Fluticasone Propionate (Flonase Allergy Relief) 50 Mcg/Act Spr, 2 SPRAYS NA DAILY PRN for CONGESTION, (Reported) Hydrocortisone (Hydrocortisone 2.5%) 30 Gm Oint, 1 APLCT TOP BID PRN for ITCHING, (Reported) Ondansetron HCl (Zofran) 4 Mg Tab, 4 MG PO Q8H PRN for NAUSEA, (Reported) Allergies Coded Allergies: Morphine (Verified Allergy, Severe, DIFFICULTY BREATHING, 05/10/16) EVARISTO SEYMOUR MD Jul 26, 2018 13:26
--- NOTE | 2018-07-26 15:07 | IPN ---
DATE: 07/25/2018 Mr. Roe is seen this morning on his bedside. He reports that his diarrhea is decreasing but he is still not feeling very well. He is not eating very good and reports lower abdominal pain which is not improving. He has been receiving Dilaudid for pain control. The patient has no fever or chills at this point. However, this morning, his temperature was 100.9 degrees Fahrenheit. He denies any dyspnea. PHYSICAL EXAMINATION: Temperature 98.6 degrees Fahrenheit, heart rate 87 per minute and respiratory rate 22 per minute. Blood pressure 146/78 mmHg and oxygen saturation 92%. His head is atraumatic. Neck is supple and without jugular venous distention (JVD) or thyroid enlargement. There is no oral thrush. His heart sounds are regular. Lungs with slightly diminished breath sounds at bases. Abdomen is soft, tender particularly in the right lower quadrant and bowel sounds are present. Extremities have no cyanosis or clubbing. LABORATORY DATA: Today's laboratories show WBC count 2.1, hemoglobin 10.9 and hematocrit 34.6. Platelets 117. Sodium 135, potassium 3.2, CO2 20, BUN 56 and creatinine 4.53. Glucose 101 and calcium 6.9. PROBLEMS: 1. Acute renal failure superimposed on chronic kidney disease. His baseline creatinine is about 2.5 mg/dL. Acute renal failure is most likely related to ongoing diarrhea and dehydration. He did have slight improvement since admission and we are going to continue with IV fluid hydration as he has had multiple loose stools. Renal function will be checked again tomorrow morning. 2. Hypokalemia. This is related to poor oral intake and ongoing diarrhea. We will add 20 mEq potassium chloride in each liter of IV fluid and recheck his electrolytes tomorrow morning. 3. Diarrhea. His gastrointestinal panel came back negative and diarrhea is already improving. He remains on antibiotics for pneumonia which is also likely to help with his enteritis. I have discussed with Dr. Luz Elena Medina and asked to stop his CellCept at least for a couple of days and see if his diarrhea improves. 4. Pneumonia. The patient is being treated with ceftriaxone and doxycycline. He still has 100.9 degrees fever and we will continue with antibiotic therapy at this point. 5. Kidney transplant status. The patient has been on prednisone, CellCept and he also receives belatacept once a month infusion. We will continue with prednisone and we are holding his CellCept for a few days. No other changes are being made today.
[2018-07-26] MEDS ORDERED: IMIPENEM/CILASTATIN 500 MG in D5W MINI-BAG PLUS 100 ML IV ONE (15:15)
[2018-07-26] MEDS ORDERED: VANCOMYCIN HCL 1,000 MG, VIAL MATE ADAPTER 1 EACH in D5W 250 ML IV ONE (15:15)
[2018-07-26] MEDS ORDERED: ACETAMINOPHEN TAB 650MG DOSE (2X325MG) PO ONE (15:45)
[2018-07-26] MEDS ORDERED: SODIUM CHLORIDE 0.9% INJ 10 ML SYR IV SCH (18:00)
--- NOTE | 2018-07-26 18:31 | REP ---
Procedure: PICC line insertion with Damaris-Danny The procedure was performed under the direct supervision of Dr. Denton. The risks and benefits of the procedure were explained to the patient and informed consent was obtained. The right basilic vein was localized using ultrasound guidance. The skin was prepped and draped in a sterile fashion. 2% lidocaine was used as a local anesthetic. Using ultrasound guidance the basilic vein was cannulated and a 0.018 guidewire was inserted and advanced to the SVC using fluoroscopic guidance. The needle was removed and a 5.5 Canadian dilator and peel-away sheath was inserted over the guide wire. A 5.5 Canadian dual lumen catheter was cut to length of 51 cm. The dilator was removed and the catheter was inserted over the guide wire with the tip ending in the SVC. The peel-away sheath was removed and the catheter was flushed with heparinized saline as per Hospital protocol. The catheter was affixed to the skin and a sterile dressing was applied. The patient tolerated the procedure well and there were no immediate complications. 0.2 minutes of fluoro time was utilized for this procedure. Reviewed by MICHAEL Foote 07/26/2018 05:41 P Electronically Signed by Gallo Denton MD 07/26/2018 06:22 P
--- NOTE | 2018-07-26 19:46 | IPN ---
DATE: 07/26/2018 Mr. Roe is seen this morning on his bedside. He was admitted with abdominal pain and diarrhea 3 days ago. He is still not feeling well and continues to have loose stools and abdominal pain. His gastrointestinal (GI) panel did come back negative. We have hydrated him with IV fluid, however, his kidney function has not improved significantly. He has history of kidney transplant with baseline creatinine about 2.5 mg/dL. Here at the time of admission his creatinine was up to 4.9 which improved only slightly down to 4.5 and since then has not improved any further. Today he has no peripheral access as nursing staff was unable to get an IV line established in his right arm. He has a left arm arteriovenous (AV) fistula which cannot be used for IV access. PHYSICAL EXAMINATION: His temperature is 101.5 degrees Fahrenheit, heart rate 64 per minute and respiratory rate 22 per minute. Blood pressure 137/65 mmHg and oxygen saturation 93% on 2 liters oxygen. His head is atraumatic. Neck is supple and jugular venous distention (JVD) is difficult to be assessed while he is sitting in the chair. His lungs sound slightly diminished but no wheezing or rales audible. Heart sounds are regular. Abdomen is soft and nontender. Bowel sounds are hyperactive. Extremities have no cyanosis or clubbing. Left forearm AV fistula is patent. He does not have any peripheral edema. Neurologically he is awake and at his baseline mentation. Today's labs show sodium 137, potassium 3.8, chloride 107, CO2 19, BUN 58 and creatinine 4.52. Glucose 85 and calcium 7.5. WBC count is 2.8, hemoglobin 12.1 and hematocrit 38.6. Platelets 129. PROBLEMS: 1. Acute renal failure superimposed on chronic kidney disease. The patient is being hydrated, however no significant improvement in kidney function noticed. He also has ongoing diarrhea. I would recommend to continue with IV fluid at least 100 mL/hour. The patient will most likely need to get a peripherally inserted central catheter (PICC) line placed or a central line placed if a peripheral access could not be obtained. 2. Kidney transplant status. The patient has kidney transplant since June 2015. His baseline creatinine has been about 2.5 mg/dL. He should continue with immunosuppression as he receives prednisone 5 mg daily and Belatacept injections once a month. His Myfortic was put on hold yesterday due to persistent diarrhea. At this point I feel that the patient has not improved over the last 3 days. I am concerned about continued fever, diarrhea and worsening kidney function. I have discussed with Dr. Moran and recommended to transfer him to [facility] due to failing kidney transplant. 3. Diarrhea. Etiology remains uncertain. His GI panel was negative and a GI consult has already been requested. It will be quite problematic to manage him here due to very prolonged turn around time for any specialized labs. I have recommended to transfer the patient to [facility].
[2018-07-27 19:10] LABS: BODY FLUID CULTURE Not Indicated (.); LEGIONELLA ANTIGEN URINE Negative (Negative); ORGANISM ID Not indicated. (.); SPECIMEN SOURCE Urine (.); URINE STREP PNEUMONIAE ANTIGEN Negative (Negative)
[2018-07-28 00:07] LABS: CMV QUANT DNA PCR (PLASMA) Positive < 200 IU/mL (Negative)
[2018-07-28 15:05] LABS: CRYPTOCOCCUS ANTIGEN SER Negative (Negative)
== END 2018-07-26 16:09 | disposition home or self-care (01) | DRG 139 ==
LOC: EDBD 18:21 → M ED 18:21 → M ED INP 07-24 01:40 → M MSPAV 07-24 13:58
PROVIDERS: ADMIT Internal Medicine; ATTEND General Practice
DX: J18.9 Pneumonia, unspecified organism (principal); E87.2 Acidosis; N17.9 Acute kidney failure, unspecified; Q61.3 Polycystic kidney, unspecified; I12.0 Hypertensive chronic kidney disease with stage 5 chronic kidney disease or end stage renal disease; N18.6 End stage renal disease; Z94.0 Kidney transplant status; J44.9 Chronic obstructive pulmonary disease, unspecified; E87.6 Hypokalemia; R19.7 Diarrhea, unspecified; E86.0 Dehydration; M10.9 Gout, unspecified; I73.9 Peripheral vascular disease, unspecified; N40.0 Benign prostatic hyperplasia without lower urinary tract symptoms; E66.9 Obesity, unspecified; Z87.891 Personal history of nicotine dependence

== ENCOUNTER → 2018-12-04 | Outpatient (CLI) | payer BC ==
[~2018-12-04] MED LIST changes: +AMLO25TA PO; -ASPI1TAB PO; +ASPI81TA26 PO; +CALC500C16 PO; +CEFT1INJ5 IV; +COLA100C5 PO; +CYAN100049 PO; +DOXY-350 IV; +FLON1SPR; +FLUO1CRE2 EX; +FLUO1CRE2 TOP; +FURO20TA2 PO; +GABA-845 PO; +HYDR25OI TOP; +HYDR25TA PO; +HYDR25TAB PO; +HYDR50TA PO; +LOTRCRE TOP; -MAGN1TAB25 PO; +MAGN1TAB26 PO; +METO1TAB87 PO; +MYCO1TAB PO; +NEUR300C PO; +NULO250I IV; +ULOR80TA PO; +VENTAER INH; +ZOFR4TAB16 PO
--- NOTE | 2018-12-04 12:33 | REP ---
Clinical: Chest pain . Comparison: 07/24/2018 . Technique: PA and lateral. Findings: The mediastinum and cardiac silhouette are normal. The lung keller demonstrate chronic interstitial changes without acute consolidation, effusion, or pneumothorax. Previous lower lobe infiltrates have resolved. The skeletal structures are intact and normal. Impression: 1. No acute cardiopulmonary process. Electronically Signed by Brent Stokes MD 12/04/2018 12:25 P
== END ==
LOC: M LRY 11:57
PROVIDERS: ATTEND Physician Assistant
DX: R05 Cough (principal); R06.2 Wheezing

== ENCOUNTER → 2018-12-04 | Outpatient (REF) | payer BC ==
[~2018-12-04] MED LIST changes: -CYAN100049 PO; +VITA10002 PO
== END ==
LOC: M SFHCLERA 12:29
PROVIDERS: ATTEND Physician Assistant
DX: J02.9 Acute pharyngitis, unspecified (principal)

== ENCOUNTER → 2019-03-06 | Outpatient (CLI) | payer BC ==
[~2019-03-06] MED LIST changes: +CYAN100049 PO; -VITA10002 PO
--- NOTE | 2019-03-06 16:16 | REP ---
MRI brain and posterior fossa without intravenous contrast: History: Sensorineural hearing loss, unilateral, right ear, with unrestricted contralateral hearing. No comparison brain imaging. Technique: Axial and sagittal imaging planes utilized. T1 and T2-weighted scans include spin-echo, fast spin echo, FLAIR, diffusion weighted scans, and 3-D thin-section T2 and gradient echo sequences. Thin section T1-weighted images are acquired in the axial plane as well. MRI findings: No bony calvarial lesion is appreciated. Craniocervical junction and upper cervical cord are normal in appearance. No intraorbital abnormality is seen. There is no MR evidence of significant paranasal sinus disease. FLAIR images demonstrate scattered T2 hyperintense foci in the subcortical white matter of the frontal and parietal lobes bilaterally consistent with mild small vessel atherosclerotic changes. Diffusion weighted scans show no evidence to suggest ischemia. No extra-axial fluid collection is seen. 3-D T2-weighted thin sections through the posterior fossa show normal seventh and eighth nerves transiting normal and symmetric internal auditory canals. The vestibular and cochlear apparatus appear intact bilaterally. No CP angle cistern mass or other extra-axial mass lesion is seen. Impression: Minimal small vessel changes. Otherwise unremarkable MR study of the brain and posterior fossa without contrast. Electronically Signed by Omar Deutsch MD 03/06/2019 04:52 P
== END ==
LOC: M RAD 12:17
PROVIDERS: ATTEND Otolaryngology
DX: H90.41 Sensorineural hearing loss, unilateral, right ear, with unrestricted hearing on the contralateral side (principal)

== ENCOUNTER → 2019-06-27 | Outpatient (REF) | payer BC ==
[~2019-06-27] MED LIST changes: -OMEP40CA2 PO; +OMEP40CA97 PO
== END ==
LOC: M LAB REF 12:52
PROVIDERS: ATTEND Internal Medicine Nephrology
DX: N25.81 Secondary hyperparathyroidism of renal origin (principal); Z94.0 Kidney transplant status

== ENCOUNTER → 2019-09-29 | Outpatient (REF) | payer OTHER | LOC: M LAB REF 16:37 | PROVIDERS: ATTEND Internal Medicine Nephrology | DX: N25.81 Secondary hyperparathyroidism of renal origin (principal); Z94.0 Kidney transplant status ==

== ENCOUNTER → 2020-04-02 | Outpatient (REF) | payer OTHER ==
[~2020-04-02] MED LIST changes: -AMLO10TA5 PO; +AMLO1TAB25 PO
== END ==
LOC: M LAB REF 16:49
PROVIDERS: ATTEND Internal Medicine Nephrology
DX: N25.81 Secondary hyperparathyroidism of renal origin (principal)

== ENCOUNTER → 2020-07-08 | Outpatient (REF) | payer OTHER | LOC: M LAB REF 16:59 | PROVIDERS: ATTEND Internal Medicine Nephrology | DX: N25.81 Secondary hyperparathyroidism of renal origin (principal); Z94.0 Kidney transplant status ==

== ENCOUNTER → 2020-10-07 | Outpatient (REF) | payer OTHER ==
[~2020-10-07] MED LIST changes: +ACYC1TAB PO; -ACYC400T PO; +HYDR-3490 PO; -HYDR25TAB PO
== END ==
LOC: M LAB REF 16:54
PROVIDERS: ATTEND Internal Medicine Nephrology
DX: N25.81 Secondary hyperparathyroidism of renal origin (principal); Z94.0 Kidney transplant status

== ENCOUNTER → 2021-05-08 | Outpatient (REF) | payer OTHER ==
[~2021-05-08] MED LIST changes: +GABA-283 PO; -GABA-845 PO; +OMEP40CA4 PO; -OMEP40CA97 PO
== END ==
LOC: M LAB REF 17:03
PROVIDERS: ATTEND Internal Medicine Nephrology
DX: N25.81 Secondary hyperparathyroidism of renal origin (principal); Z94.0 Kidney transplant status; E83.42 Hypomagnesemia

== ENCOUNTER → 2021-08-06 | Outpatient (REF) ==
[2021-08-06 20:10] LABS: COLLAGEN EPINEPHRINE > 300 SECONDS (74-162)
[2021-08-06 20:11] LABS: COLLAGEN ADP 121 SECONDS (56-103)
== END ==
LOC: M LAB REF 18:32
PROVIDERS: ATTEND Family Medicine
DX: R23.3 Spontaneous ecchymoses (principal)

== ENCOUNTER → 2021-09-09 | Outpatient (REF) | payer OTHER ==
[2021-09-09 17:11] LABS: COMPLEMENT C3 94 MG/DL (90-180); COMPLEMENT C4 32 MG/DL (10-40)
== END ==
LOC: M LAB REF 16:50
PROVIDERS: ATTEND Internal Medicine Nephrology
DX: N25.81 Secondary hyperparathyroidism of renal origin (principal); Z94.0 Kidney transplant status

== ENCOUNTER → 2022-01-01 | Outpatient (REF) | payer OTHER | LOC: M SFHCDERM 17:26 | PROVIDERS: ATTEND Nurse Practitioner Family | DX: C44.329 Squamous cell carcinoma of skin of other parts of face (principal); D23.39 Other benign neoplasm of skin of other parts of face ==

== ENCOUNTER 2022-01-28 17:22 | Inpatient (IN) | payer MEDICARE, OTHER ==
[~2022-01-28] VITALS: Ht 188 cm; Wt 118.6 kg
[2022-01-28 18:57] LABS: VENOUS BASE EXCESS 1.1 (-2.0-2.0); VENOUS HCO3 25.6 MEQ/L (23.0-27.0); VENOUS O2 SATURATION 63.4 % (60.0-80.0); VENOUS PARTIAL PRESSURE CO2 40.5 mmHg (38.0-50.0); VENOUS PARTIAL PRESSURE O2 31.3 mmHg (30.0-50.0); VENOUS PH 7.419 UNITS (7.330-7.430); VENOUS STANDARD HCO3 24.6 MEQ/L; VENOUS TOTAL CO2 26.9 MEQ/L (24.0-28.0)
[2022-01-28 19:00] LABS: HEMATOCRIT 42.1 % (42.0-52.0); MEAN CORPUSCULAR HEMOGLOBIN 27.9 pg (27.0-33.0); MEAN CORPUSCULAR HGB CONC 30.9 g/dl (32.0-36.5); MEAN CORPUSCULAR VOLUME 90.3 fl (80.0-96.0); PLATELET COUNT, AUTOMATED 189 10^3/uL (150-450); RED BLOOD COUNT 4.66 10^6/uL (4.30-6.10); WHITE BLOOD COUNT 4.5 10^3/uL (4.0-10.0)
[2022-01-28] MEDS ORDERED: dexameTHASONE 20MG/5ML VIAL (J1100 PER 1MG) IV ONE (19:15)
[2022-01-28] MEDS: COMBIVENT RESPIMAT 100-20MCG INHALER 4GM INH SCH ×3 (19:38→21:29)
[2022-01-28 19:39] LABS: CK-MB VALUE MASS 2.3 NG/ML (<3.6); MB/CK RELATIVE INDEX 3.15 (< OR =4)
[2022-01-28 19:58] LABS: ALBUMIN 3.1 GM/DL (3.2-5.2); BILIRUBIN,DIRECT 0.2 MG/DL (0.0-0.2); BILIRUBIN,TOTAL 0.5 MG/DL (0.2-1.0); CALCIUM LEVEL 8.4 MG/DL (8.5-10.1); CREATININE FOR GFR 3.11 MG/DL (0.70-1.30); GLOMERULAR FILTRATION RATE 22.5 (>56); POTASSIUM SERUM 4.4 MEQ/L (3.5-5.1); THYROID STIMULATING HORMONE 1.82 uIU/ML (0.358-3.740); TOTAL PROTEIN 5.9 GM/DL (6.4-8.2)
[2022-01-28 20:23] LABS: LYMPHOCYTES 17 % (16-44); MONOCYTES 4 % (0-5); NEUTROPHILS 77 % (28-66)
[2022-01-28 20:24] LABS: ANISOCYTOSIS 1+; OVALOCYTES 1+; PLATELET ESTIMATE NORMAL (NORMAL); POIKILOCYTOSIS 1+; POLYCHROMASIA 1+
[2022-01-28] MEDS ORDERED: CARVedilol 12.5 MG TAB PO SCH (21:00)
[2022-01-28] MEDS: traZODone 50 MG TAB PO SCH (21:00)
[2022-01-28] MEDS: ASPIRIN 81MG ENTERIC TABLET PO SCH (21:00)
[2022-01-28] MEDS ORDERED: TORSEMIDE 20 MG TAB PO ONE (21:55)
[2022-01-28] MEDS ORDERED: CARVedilol 12.5 MG TAB PO ONE (21:55)
[2022-01-28] MEDS ORDERED: TORS20TA2 PO ×2 (22:35)
[2022-01-28] MEDS ORDERED: MYFO180T PO (22:35)
[2022-01-28] MEDS ORDERED: PANT40TA29 PO (22:35)
[2022-01-28] MEDS ORDERED: ONDA-195 PO (22:35)
[2022-01-28] MEDS ORDERED: ENVA200T PO (22:35)
[2022-01-28] MEDS ORDERED: TREL1AER INH (22:35)
[2022-01-28] MEDS ORDERED: BACITAB PO (22:35)
[2022-01-28] MEDS ORDERED: CARV12.5 PO (22:35)
[2022-01-28] MEDS ORDERED: ERGO500029 PO (22:35)
[2022-01-28] MEDS ORDERED: ASPI81TA26 PO (22:35)
[2022-01-28] MEDS ORDERED: LOSA50TA28 PO (22:35)
[2022-01-28] MEDS ORDERED: LEXA5TAB13 PO (22:39)
[2022-01-28] MEDS ORDERED: TRAZ1TAB10 PO (22:39)
[2022-01-28] MEDS ORDERED: BENZ-18 PO (22:39)
[2022-01-28] MEDS ORDERED: HOME MED LIST COMPLETE! XX SCH (22:40)
[2022-01-28] MEDS ORDERED: ACETAMINOPHEN TAB 650MG DOSE (2X325MG) PO PRN (23:35)
[2022-01-28] MEDS ORDERED: ALBUTEROL 90 MCG/ACT 8GM HFA INHALER INH PRN (23:45)
[2022-01-28] MEDS ORDERED: hydrALAZINE 20MG/ML 1ML VIAL (J0360 PER 20MG) IV PRN (23:45)
[2022-01-28] MEDS ORDERED: CALCIUM CARBONATE 500 MG CHEW U/D PO PRN (23:45)
[2022-01-28] MEDS ORDERED: BENZONATATE 100MG CAPSULE PO PRN (23:45)
[2022-01-29] VITALS (13 sets, daily range): BP systolic 134–194; BP diastolic 65–103
[2022-01-29] MEDS ORDERED: ONDANSETRON 4MG TAB PO PRN (02:50)
[2022-01-29 04:58] LABS: MB/CK RELATIVE INDEX 2.7 (< OR =4)
[2022-01-29] MEDS: HEPARIN SOD (PORCINE) 5000UNITS/ML 1ML VIAL/SYRINGE SC SCH ×3 (05:30→20:40)
[2022-01-29] MEDS ORDERED: **hydrALAZINE HCL** 25 MG TAB PO SCH (06:00)
[2022-01-29 07:23] LABS: HEMATOCRIT 39.9 % (42.0-52.0); HEMOGLOBIN 12.7 g/dl (13.5-17.5); LYMPH # 0.5 10^3/uL (1.5-5.0); LYMPH % 11.9 % (24.0-44.0); MEAN CORPUSCULAR HEMOGLOBIN 28.4 pg (27.0-33.0); MEAN CORPUSCULAR HGB CONC 31.8 g/dl (32.0-36.5); MEAN CORPUSCULAR VOLUME 89.3 fl (80.0-96.0); MONO # 0.1 10^3/uL (0.0-0.8); MONO % 3.5 % (2.0-8.0); NEUTROPHILS # 3.1 10^3/uL (1.5-8.5); NEUTROPHILS % 79.3 % (36.0-66.0); PLATELET COUNT, AUTOMATED 181 10^3/uL (150-450); RED BLOOD COUNT 4.47 10^6/uL (4.30-6.10)
[2022-01-29 07:49] LABS: CALCIUM LEVEL 8.9 MG/DL (8.5-10.1); CREATININE FOR GFR 3.08 MG/DL (0.70-1.30); GLOMERULAR FILTRATION RATE 22.7 (>56)
[2022-01-29 08:03] LABS: MB/CK RELATIVE INDEX 3.85 (< OR =4)
[2022-01-29] MEDS: PANTOPRAZOLE 40MG TAB (PROTONIX) PO SCH (08:10)
[2022-01-29] MEDS: TORSEMIDE 20 MG TAB PO SCH (08:10)
[2022-01-29] MEDS: FEBUXOSTAT 40 MG TABLET (ULORIC) PO SCH (08:10)
[2022-01-29] MEDS: predniSONE 5 MG TAB PO SCH (08:10)
[2022-01-29] MEDS: CARVedilol 12.5 MG TAB PO SCH ×2 (08:11→20:38)
[2022-01-29] MEDS: TACROLIMUS 1 MG CAP (J7507) PO SCH (08:11)
[2022-01-29] MEDS: **hydrALAZINE** 50 MG TAB PO SCH ×3 (09:00→20:38)
[2022-01-29] MEDS ORDERED: LOSARTAN 50MG TABLET PO SCH (09:00)
[2022-01-29] MEDS ORDERED: MYCOPHENOLATE SODIUM 180 MG PO SCH (09:00)
[2022-01-29] MEDS ORDERED: PATIROMER SORBITEX CALCIUM 8.4 GM POWDER PACKET (VELTASSA) PO ONE (11:00)
[2022-01-29] MEDS ORDERED: guaiFENesin SYRUP 200MG 10ML UDC PO PRN (13:45)
[2022-01-29] MEDS: TIOTROPIUM INHALER/CAPSULE (SPIRIVA) INH SCH (14:13)
[2022-01-29] MEDS ORDERED: TORSEMIDE 10 MG TABLET PO SCH (17:00)
[2022-01-29] MEDS: SYMBICORT 160/4.5MCG INHALER 6GM INH SCH (19:34)
[2022-01-29] MEDS: ASPIRIN 81MG ENTERIC TABLET PO SCH (20:39)
[2022-01-29] MEDS: traZODone 50 MG TAB PO SCH (20:39)
[2022-01-29] MEDS ORDERED: ESCITALOPRAM OXALATE 5MG TABLET (LEXAPRO) PO SCH (21:00)
[2022-01-30] VITALS: BP 145/77
[2022-01-30] MEDS ORDERED: UNRESOLVED PATIENT OWN MED ORDER XX SCH (00:01)
[2022-01-30 02:04] LABS: CALCIUM LEVEL 8.7 MG/DL (8.5-10.1); CREATININE FOR GFR 3.37 MG/DL (0.70-1.30); GLOMERULAR FILTRATION RATE 20.5 (>56); POTASSIUM SERUM 4.2 MEQ/L (3.5-5.1)
[2022-01-30 04:00] VITALS: BP 146/82
[2022-01-30] MEDS: HEPARIN SOD (PORCINE) 5000UNITS/ML 1ML VIAL/SYRINGE SC SCH (06:15)
[2022-01-30 07:51] VITALS: BP 178/84
[2022-01-30 08:02] LABS: HEMATOCRIT 39.5 % (42.0-52.0); HEMOGLOBIN 12.7 g/dl (13.5-17.5); MEAN CORPUSCULAR HEMOGLOBIN 28.8 pg (27.0-33.0); MEAN CORPUSCULAR HGB CONC 32.2 g/dl (32.0-36.5); MEAN CORPUSCULAR VOLUME 89.6 fl (80.0-96.0); PLATELET COUNT, AUTOMATED 159 10^3/uL (150-450); RED BLOOD COUNT 4.41 10^6/uL (4.30-6.10); WHITE BLOOD COUNT 3.8 10^3/uL (4.0-10.0)
[2022-01-30] MEDS: TIOTROPIUM INHALER/CAPSULE (SPIRIVA) INH SCH (08:39)
[2022-01-30] MEDS: SYMBICORT 160/4.5MCG INHALER 6GM INH SCH (08:39)
[2022-01-30 08:44] LABS: ALBUMIN 2.7 GM/DL (3.2-5.2); BILIRUBIN,TOTAL 0.5 MG/DL (0.2-1.0); CREATININE FOR GFR 3.14 MG/DL (0.70-1.30); GLOMERULAR FILTRATION RATE 22.2 (>56); PHOSPHORUS LEVEL 4.5 MG/DL (2.5-4.9); POTASSIUM SERUM 4.2 MEQ/L (3.5-5.1); TOTAL PROTEIN 5.6 GM/DL (6.4-8.2)
[2022-01-30] MEDS: PANTOPRAZOLE 40MG TAB (PROTONIX) PO SCH (08:44)
[2022-01-30] MEDS: TORSEMIDE 20 MG TAB PO SCH (08:44)
[2022-01-30] MEDS: predniSONE 5 MG TAB PO SCH (08:44)
[2022-01-30 08:45] VITALS: BP 178/84
[2022-01-30] MEDS: FEBUXOSTAT 40 MG TABLET (ULORIC) PO SCH (08:45)
[2022-01-30] MEDS: TACROLIMUS 1 MG CAP (J7507) PO SCH (08:45)
[2022-01-30] MEDS: **hydrALAZINE** 50 MG TAB PO SCH (08:45)
[2022-01-30] MEDS: CARVedilol 12.5 MG TAB PO SCH (08:45)
[2022-01-30 08:54] LABS: LYMPHOCYTES 16 % (16-44); MONOCYTES 3 % (0-5); MYELOCYTES 2 % (0-0); NEUTROPHILS 79 % (28-66); PLATELET ESTIMATE NORMAL (NORMAL)
[2022-01-30 08:55] LABS: ANISOCYTOSIS 1+; OVALOCYTES 1+; POIKILOCYTOSIS 1+
[2022-01-30 09:00] LABS: POLYCHROMASIA 1+
[2022-01-30] MEDS ORDERED: LOSARTAN 50MG TABLET PO SCH (09:00)
[2022-01-30] MEDS ORDERED: LOSA50TA28 PO (09:37)
[2022-01-30] MEDS ORDERED: VENTAER INH (09:37)
[2022-01-30] MEDS ORDERED: HYDR50TA PO (09:37)
[2022-01-30 09:41] VITALS: BP 144/71
== END 2022-01-30 11:30 | disposition home or self-care (01) | DRG 304 ==
LOC: M ED 17:22 → EDBD 17:22 → M ED INP 23:30 → M ICU 01-29 04:27 → M 4MAIN 01-29 21:35
PROVIDERS: ADMIT Family Medicine; ATTEND Internal Medicine Nephrology
PROC: 3E0333Z Introduction of Anti-inflammatory into Peripheral Vein, Percutaneous Approach (ICD-10-PCS; principal; 2022-01-28)
DX: I16.0 Hypertensive urgency (principal); U07.1 COVID-19; N18.6 End stage renal disease; Z94.0 Kidney transplant status; E87.1 Hypo-osmolality and hyponatremia; E87.2 Acidosis; I24.8 Other forms of acute ischemic heart disease; D84.9 Immunodeficiency, unspecified; Z95.0 Presence of cardiac pacemaker; I12.0 Hypertensive chronic kidney disease with stage 5 chronic kidney disease or end stage renal disease; M10.9 Gout, unspecified; G47.33 Obstructive sleep apnea (adult) (pediatric); Z85.828 Personal history of other malignant neoplasm of skin; Z87.891 Personal history of nicotine dependence; Z99.2 Dependence on renal dialysis; R74.01 Elevation of levels of liver transaminase levels; Z79.82 Long term (current) use of aspirin; Z79.899 Other long term (current) drug therapy; Z88.5 Allergy status to narcotic agent; R09.02 Hypoxemia; F32.A Depression, unspecified; E66.9 Obesity, unspecified; N40.0 Benign prostatic hyperplasia without lower urinary tract symptoms; G62.9 Polyneuropathy, unspecified

== ENCOUNTER 2022-04-02 16:24 | Emergency (ER) | payer OTHER ==
[~2022-04-02] VITALS: Ht 188 cm; Wt 124.7 kg
[~2022-04-02 16:24] MED LIST changes: +BACITAB PO; +BENZ-18 PO; +CARV12.5 PO; -DOXY-350 IV; +DOXY-444 IV; +ENVA200T PO; +ERGO500029 PO; +LEXA5TAB13 PO; +LOSA50TA28 PO; +MYFO180T PO; +ONDA-195 PO; +PANT40TA29 PO; +TORS20TA2 PO; +TRAZ1TAB10 PO; +TREL1AER INH
[2022-04-02] MEDS ORDERED: diphenhydrAMINE 50MG/ML VIAL (J1200) IV PRN (20:35)
[2022-04-02] MEDS ORDERED: NS 1,000 ML IV SCH (20:35)
[2022-04-02] MEDS ORDERED: ALBUTEROL SULFATE 2.5 MG/0.5 ML INH NEB SOLN INH PRN (20:35)
[2022-04-02] MEDS ORDERED: BEBTELOVIMAB 175MG 2ML VIAL (EUA) IV ONE ×2 (20:35→21:00)
[2022-04-02] MEDS ORDERED: EPINEPHrine INJ 1 MG/ML 1ML AMP IM PRN (20:35)
[2022-04-02] MEDS ORDERED: methylPREDNISolone 125MG 2ML VIAL IV PRN (20:35)
[2022-04-02] MEDS ORDERED: ACETAMINOPHEN TAB 650MG DOSE (2X325MG) PO PRN (20:35)
[2022-04-02] MEDS ORDERED: ALBUTEROL 90 MCG/ACT 8GM HFA INHALER INH PRN (20:35)
[2022-04-02 20:54] LABS: BASO % 0.4 % (0.0-1.0); EOS % 0.4 % (0.0-3.0); HEMATOCRIT 40.3 % (42.0-52.0); HEMOGLOBIN 12.6 g/dl (13.5-17.5); LYMPH # 0.7 10^3/uL (1.5-5.0); MEAN CORPUSCULAR HEMOGLOBIN 29.2 pg (27.0-33.0); MEAN CORPUSCULAR HGB CONC 31.3 g/dl (32.0-36.5); MEAN CORPUSCULAR VOLUME 93.3 fl (80.0-96.0); MONO # 0.3 10^3/uL (0.0-0.8); NEUTROPHILS # 4.5 10^3/uL (1.5-8.5); NEUTROPHILS % 80.7 % (36.0-66.0); PLATELET COUNT, AUTOMATED 123 10^3/uL (150-450); RED BLOOD COUNT 4.32 10^6/uL (4.30-6.10); WHITE BLOOD COUNT 5.5 10^3/uL (4.0-10.0)
[2022-04-02 21:57] LABS: CALCIUM LEVEL 8.6 MG/DL (8.5-10.1); CREATININE FOR GFR 3.19 MG/DL (0.70-1.30); GLOMERULAR FILTRATION RATE 21.8 (>56); POTASSIUM SERUM 4.7 MEQ/L (3.5-5.1)
[2022-04-02 22:08] VITALS: BP 167/83
== END 2022-04-02 22:17 | disposition home or self-care (01) ==
LOC: M ED 16:24
DX: U07.1 COVID-19 (principal); N18.9 Chronic kidney disease, unspecified; K76.89 Other specified diseases of liver; C44.91 Basal cell carcinoma of skin, unspecified; Z88.6 Allergy status to analgesic agent; Z79.51 Long term (current) use of inhaled steroids; Z79.899 Other long term (current) drug therapy; Z79.811 Long term (current) use of aromatase inhibitors
CPT/HCPCS: 71046; 80048; 85025; 93005; 99284; M0222; Q0222

== ENCOUNTER → 2022-07-06 | Outpatient (REF) | payer OTHER | LOC: M SFHCDERM 14:09 | PROVIDERS: ATTEND Nurse Practitioner Family | DX: C44.311 Basal cell carcinoma of skin of nose (principal) ==

== ENCOUNTER 2022-08-03 16:23 | Inpatient (IN) | payer OTHER ==
[~2022-08-03] VITALS: Ht 188 cm; Wt 114.7 kg
[~2022-08-03 16:23] MED LIST changes: -OXYC-404 PO; +OXYC20TA64 PO
[2022-08-03 18:28] LABS: BASO % 0.2 % (0.0-1.0); EOS % 0.4 % (0.0-3.0); HEMATOCRIT 36.5 % (42.0-52.0); HEMOGLOBIN 11.2 g/dl (13.5-17.5); LYMPH # 0.8 10^3/uL (1.5-5.0); LYMPH % 15.7 % (24.0-44.0); MEAN CORPUSCULAR HEMOGLOBIN 28.8 pg (27.0-33.0); MEAN CORPUSCULAR HGB CONC 30.7 g/dl (32.0-36.5); MEAN CORPUSCULAR VOLUME 93.8 fl (80.0-96.0); MONO # 0.5 10^3/uL (0.0-0.8); MONO % 8.6 % (2.0-8.0); NEUTROPHILS # 3.8 10^3/uL (1.5-8.5); NEUTROPHILS % 73.6 % (36.0-66.0); PLATELET COUNT, AUTOMATED 115 10^3/uL (150-450); RED BLOOD COUNT 3.89 10^6/uL (4.30-6.10); WHITE BLOOD COUNT 5.2 10^3/uL (4.0-10.0)
[2022-08-03 18:56] LABS: BILIRUBIN,DIRECT 0.3 MG/DL (<0.4); BILIRUBIN,TOTAL 0.6 MG/DL (0.3-1.2); CALCIUM LEVEL 7.9 MG/DL (8.5-10.1); CREATININE FOR GFR 2.7 MG/DL (0.70-1.30); GLOMERULAR FILTRATION RATE 26.3 (>56); POTASSIUM SERUM 4.6 MMOL/L (3.5-5.1)
[2022-08-03] MEDS ORDERED: CARVedilol 12.5 MG TAB PO ONE (20:10)
[2022-08-03] MEDS ORDERED: **hydrALAZINE** 50 MG TAB PO ONE (20:10)
[2022-08-03] MEDS ORDERED: HYDROCORTISONE 100MG/2ML VIAL IV ONE (21:05)
[2022-08-04] VITALS (7 sets, daily range): BP systolic 101–162; BP diastolic 53–89
[2022-08-04] MEDS ORDERED: hydrALAZINE 20MG/ML 1ML VIAL IV SCH
[2022-08-04] MEDS ORDERED: LEXA1TAB2 PO (00:06)
[2022-08-04] MEDS ORDERED: NITR4TASL SL (00:06)
[2022-08-04] MEDS ORDERED: ALBU8.5H INH (00:06)
[2022-08-04] MEDS ORDERED: ERYT5OIN25 OU (00:06)
[2022-08-04] MEDS ORDERED: AZEL1SPR3 (00:06)
[2022-08-04] MEDS ORDERED: LOMO2.5T PO (00:06)
[2022-08-04] MEDS ORDERED: RISATAB3 PO (00:06)
[2022-08-04] MEDS ORDERED: HYDR-3911 PO (00:06)
[2022-08-04] MEDS ORDERED: LEVOTAB10 PO (00:06)
[2022-08-04] MEDS ORDERED: SODI650T PO (00:06)
[2022-08-04] MEDS ORDERED: LOSA50TA28 PO (00:06)
[2022-08-04] MEDS ORDERED: MONT10TA97 PO (00:06)
[2022-08-04] MEDS ORDERED: RA M10TA PO (00:06)
[2022-08-04] MEDS ORDERED: ENVA1TAB4 PO (00:06)
[2022-08-04] MEDS ORDERED: PREDOPD OU (00:06)
[2022-08-04] MEDS ORDERED: FLUT1BLS8 INH (00:06)
[2022-08-04] MEDS ORDERED: HOME MED LIST COMPLETE! XX SCH (00:10)
[2022-08-04] MEDS ORDERED: ALBUTEROL 90 MCG/ACT 8GM HFA INHALER INH PRN (00:20)
[2022-08-04] MEDS ORDERED: AZELASTINE 137MCG NASAL SPY 30 ML (ASTELIN) PRN (00:20)
[2022-08-04] MEDS: traZODone 50 MG TAB PO SCH ×2 (01:10→22:04)
[2022-08-04] MEDS: ACETAMINOPHEN TAB 650MG DOSE (2X325MG) PO PRN ×3 (01:11→22:14)
[2022-08-04] MEDS: ESCITALOPRAM OXALATE 10 MG TAB (LEXAPRO) PO SCH ×2 (01:11→22:05)
[2022-08-04] MEDS: ASPIRIN 81MG ENTERIC TABLET PO SCH ×2 (01:11→22:03)
[2022-08-04] MEDS ORDERED: hydrALAZINE 20MG/ML 1ML VIAL IV PRN ×2 (01:14→19:14)
[2022-08-04] MEDS: HEPARIN SOD (PORCINE) 5000UNITS/ML 1ML VIAL/SYRINGE SQ SCH ×3 (05:31→22:02)
[2022-08-04 06:56] LABS: HEMATOCRIT 36.7 % (42.0-52.0); HEMOGLOBIN 11.3 g/dl (13.5-17.5); MEAN CORPUSCULAR HGB CONC 30.8 g/dl (32.0-36.5); MEAN CORPUSCULAR VOLUME 94.3 fl (80.0-96.0); PLATELET COUNT, AUTOMATED 105 10^3/uL (150-450); RED BLOOD COUNT 3.89 10^6/uL (4.30-6.10)
[2022-08-04 07:19] LABS: CALCIUM LEVEL 7.9 MG/DL (8.5-10.1); CREATININE FOR GFR 2.8 MG/DL (0.70-1.30); GLOMERULAR FILTRATION RATE 25.3 (>56); POTASSIUM SERUM 4.5 MMOL/L (3.5-5.1)
[2022-08-04] MEDS: TIOTROPIUM INHALER/CAPSULE (SPIRIVA) INH SCH (08:00)
[2022-08-04] MEDS: FEBUXOSTAT 40 MG TABLET (ULORIC) PO SCH (08:39)
[2022-08-04] MEDS: predniSONE 5 MG TAB PO SCH (08:40)
[2022-08-04] MEDS: PANTOPRAZOLE 40MG TAB (PROTONIX) PO SCH (08:40)
[2022-08-04] MEDS: **hydrALAZINE** 50 MG TAB PO SCH ×3 (08:40→22:06)
[2022-08-04] MEDS: MONTELUKAST 10 MG TAB PO SCH (08:41)
[2022-08-04] MEDS: CARVedilol 12.5 MG TAB PO SCH ×2 (08:41→22:05)
[2022-08-04] MEDS ORDERED: TORSEMIDE 20 MG TAB PO SCH (09:00)
[2022-08-04] MEDS: CHOLESTYRAMINE 4GM PWD PKT PO SCH ×4 (12:00→22:08)
[2022-08-04] MEDS ORDERED: RAMELTEON 8 MG TAB (ROZEREM) PO PRN (12:10)
[2022-08-04] MEDS ORDERED: NITROGLYCERIN 0.4MG SUBL TABLET SL PRN (12:10)
[2022-08-04] MEDS: LOMOTIL 2.5MG/0.025MG TABLET PO SCH ×3 (12:33→22:03)
[2022-08-04] MEDS: MYCOPHENOLIC ACID 180 MG PO SCH ×2 (12:36→21:00)
[2022-08-04] MEDS: ENVARSUS 0.75 MG PO SCH (12:37)
[2022-08-04] MEDS: LACTOBACILLUS ACIDOPHILUS CAP (BACID) PO SCH (13:20)
[2022-08-04] MEDS: TORSEMIDE 20 MG TAB PO SCH (13:20)
[2022-08-04] MEDS: SODIUM BICARBONATE 325 MG TAB PO SCH ×2 (13:21→22:03)
[2022-08-04] MEDS: prednisoLONE ACET 1% OPHTH SUSP 5ML OU SCH ×3 (13:21→22:01)
[2022-08-04] MEDS: ADVAIR HFA 115/21MCG INHALER INH SCH (19:38)
[2022-08-04] MEDS ORDERED: ENTER DRUG NAME HERE (PATIENT'S OWN MED) PO SCH (21:00)
[2022-08-04] MEDS ORDERED: CETIRIZINE (ZyrTEC) 10 MG TAB PO SCH (21:00)
[2022-08-04] MEDS ORDERED: ERYTHROMYCIN OPHTH OINT OU SCH (21:00)
[2022-08-05 00:37] VITALS: BP 128/60
[2022-08-05 04:36] VITALS: BP 164/82
[2022-08-05] MEDS ORDERED: diphenhydrAMINE 25MG CAP PO ONE (04:45)
[2022-08-05 05:14] LABS: EOS % 0.8 % (0.0-3.0); HEMATOCRIT 34.8 % (42.0-52.0); HEMOGLOBIN 10.2 g/dl (13.5-17.5); LYMPH # 0.8 10^3/uL (1.5-5.0); LYMPH % 21.7 % (24.0-44.0); MEAN CORPUSCULAR HEMOGLOBIN 28.3 pg (27.0-33.0); MEAN CORPUSCULAR HGB CONC 29.3 g/dl (32.0-36.5); MEAN CORPUSCULAR VOLUME 96.4 fl (80.0-96.0); MONO # 0.3 10^3/uL (0.0-0.8); MONO % 7.5 % (2.0-8.0); NEUTROPHILS # 2.6 10^3/uL (1.5-8.5); NEUTROPHILS % 68.4 % (36.0-66.0); PLATELET COUNT, AUTOMATED 104 10^3/uL (150-450); RED BLOOD COUNT 3.61 10^6/uL (4.30-6.10); WHITE BLOOD COUNT 3.7 10^3/uL (4.0-10.0)
[2022-08-05 05:36] LABS: CALCIUM LEVEL 8.1 MG/DL (8.5-10.1); CREATININE FOR GFR 2.87 MG/DL (0.70-1.30); GLOMERULAR FILTRATION RATE 24.6 (>56)
[2022-08-05] MEDS: LOMOTIL 2.5MG/0.025MG TABLET PO SCH ×2 (06:02→12:36)
[2022-08-05] MEDS: HEPARIN SOD (PORCINE) 5000UNITS/ML 1ML VIAL/SYRINGE SQ SCH (06:03)
[2022-08-05] MEDS: ACETAMINOPHEN TAB 650MG DOSE (2X325MG) PO PRN (06:11)
[2022-08-05 07:36] VITALS: BP 162/72
[2022-08-05] MEDS ORDERED: ENTER DRUG NAME HERE (PATIENT'S OWN MED) PO SCH (09:00)
[2022-08-05] MEDS: LACTOBACILLUS ACIDOPHILUS CAP (BACID) PO SCH (09:51)
[2022-08-05] MEDS: SODIUM BICARBONATE 325 MG TAB PO SCH (09:51)
[2022-08-05] MEDS: predniSONE 5 MG TAB PO SCH (09:51)
[2022-08-05] MEDS: FEBUXOSTAT 40 MG TABLET (ULORIC) PO SCH (09:51)
[2022-08-05] MEDS: MONTELUKAST 10 MG TAB PO SCH (09:51)
[2022-08-05] MEDS: TORSEMIDE 20 MG TAB PO SCH (09:51)
[2022-08-05] MEDS: PANTOPRAZOLE 40MG TAB (PROTONIX) PO SCH (09:51)
[2022-08-05] MEDS: CARVedilol 12.5 MG TAB PO SCH (09:52)
[2022-08-05] MEDS: **hydrALAZINE** 50 MG TAB PO SCH (09:52)
[2022-08-05] MEDS: MYCOPHENOLIC ACID 180 MG PO SCH (09:52)
[2022-08-05] MEDS: ENVARSUS 0.75 MG PO SCH (09:53)
[2022-08-05] MEDS: prednisoLONE ACET 1% OPHTH SUSP 5ML OU SCH ×2 (09:53→12:36)
[2022-08-05] MEDS ORDERED: LOSARTAN 50MG TABLET PO SCH (10:00)
[2022-08-05] MEDS ORDERED: DIPH2.5T15 PO (10:56)
[2022-08-05] MEDS: TIOTROPIUM INHALER/CAPSULE (SPIRIVA) INH SCH (11:12)
[2022-08-05] MEDS: ADVAIR HFA 115/21MCG INHALER INH SCH (11:12)
[2022-08-05 11:50] VITALS: BP 126/62
[2022-08-05 12:36] VITALS: BP 126/62
== END 2022-08-05 15:15 | disposition home health service (06) | DRG 197 ==
LOC: M ED 16:23 → M ED INP 23:06 → M PCU 08-04 00:06
PROVIDERS: ADMIT Internal Medicine; ATTEND Internal Medicine
DX: J84.9 Interstitial pulmonary disease, unspecified (principal); I13.0 Hypertensive heart and chronic kidney disease with heart failure and stage 1 through stage 4 chronic kidney disease, or unspecified chronic kidney disease; D68.59 Other primary thrombophilia; Z94.0 Kidney transplant status; N18.4 Chronic kidney disease, stage 4 (severe); I50.32 Chronic diastolic (congestive) heart failure; D61.818 Other pancytopenia; Q61.3 Polycystic kidney, unspecified; E87.20 Acidosis, unspecified; J44.9 Chronic obstructive pulmonary disease, unspecified; I27.20 Pulmonary hypertension, unspecified; G47.33 Obstructive sleep apnea (adult) (pediatric); M10.9 Gout, unspecified; Z79.52 Long term (current) use of systemic steroids; A08.4 Viral intestinal infection, unspecified; J98.4 Other disorders of lung; I16.0 Hypertensive urgency; J45.909 Unspecified asthma, uncomplicated; K21.9 Gastro-esophageal reflux disease without esophagitis; M62.81 Muscle weakness (generalized); E66.9 Obesity, unspecified; Z68.30 Body mass index [BMI] 30.0-30.9, adult; K58.8 Other irritable bowel syndrome; Z85.828 Personal history of other malignant neoplasm of skin; Z88.5 Allergy status to narcotic agent; Z79.899 Other long term (current) drug therapy; Z79.82 Long term (current) use of aspirin; Z87.891 Personal history of nicotine dependence

== ENCOUNTER 2022-08-10 21:30 | Inpatient (IN) | payer OTHER ==
[~2022-08-10] VITALS: Ht 188 cm; Wt 110.0 kg
[~2022-08-10 21:30] MED LIST changes: +ALBU8.5H INH; +AZEL1SPR3; +DIPH2.5T15 PO; +ENVA1TAB4 PO; +ERYT5OIN25 OU; +FLUT1BLS8 INH; +LEVOTAB10 PO; +LEXA1TAB2 PO; +LOMO2.5T PO; +MONT10TA97 PO; +NITR4TASL SL; +PREDOPD OU; +RA M10TA PO; +RISATAB3 PO; +SODI650T PO
[2022-08-10 22:30] VITALS: BP 151/78
[2022-08-10] MEDS: SODIUM CHLORIDE 0.9% 1000ML IV SCH (23:05)
[2022-08-11] MEDS: SODIUM CHLORIDE 0.9% 1000ML IV SCH
[2022-08-11] MEDS: ACETAMINOPHEN TAB 650MG DOSE (2X325MG) PO PRN ×3 (00:14→14:27)
[2022-08-11] MEDS ORDERED: LOMO2.5T PO (00:18)
[2022-08-11] MEDS ORDERED: HOME MED LIST COMPLETE! XX SCH (00:20)
[2022-08-11 00:30] VITALS: BP 148/77
[2022-08-11 06:37] VITALS: BP 147/79
[2022-08-11] MEDS: HEPARIN SOD (PORCINE) 5000UNITS/ML 1ML VIAL/SYRINGE SC SCH ×2 (06:37→14:00)
[2022-08-11 06:56] LABS: CREATININE FOR GFR 3.13 MG/DL (0.70-1.30); GLOMERULAR FILTRATION RATE 22.2 (>56); MAGNESIUM LEVEL 1.5 MG/DL (1.8-2.4); POTASSIUM SERUM 4.2 MMOL/L (3.5-5.1)
[2022-08-11 08:01] LABS: BASO % 0.4 % (0.0-1.0); EOS % 1.3 % (0.0-3.0); HEMATOCRIT 32.9 % (42.0-52.0); LYMPH # 0.7 10^3/uL (1.5-5.0); LYMPH % 30.3 % (24.0-44.0); MEAN CORPUSCULAR HEMOGLOBIN 28.8 pg (27.0-33.0); MEAN CORPUSCULAR HGB CONC 30.4 g/dl (32.0-36.5); MEAN CORPUSCULAR VOLUME 94.8 fl (80.0-96.0); MONO # 0.2 10^3/uL (0.0-0.8); MONO % 7.5 % (2.0-8.0); NEUTROPHILS # 1.4 10^3/uL (1.5-8.5); NEUTROPHILS % 60.1 % (36.0-66.0); RED BLOOD COUNT 3.47 10^6/uL (4.30-6.10); WHITE BLOOD COUNT 2.3 10^3/uL (4.0-10.0)
[2022-08-11 08:26] LABS: PLATELET COUNT, AUTOMATED 87 10^3/uL (150-450)
[2022-08-11] MEDS ORDERED: ENVARSUS 0.75 MG PO SCH (09:00)
[2022-08-11 14:23] VITALS: BP 147/83
[2022-08-11] MEDS ORDERED: ALBUTEROL 90 MCG/ACT 8GM HFA INHALER INH PRN (15:55)
[2022-08-11] MEDS ORDERED: AZELASTINE 137MCG NASAL SPY 30 ML (ASTELIN) PRN (15:55)
[2022-08-11] MEDS ORDERED: NITROGLYCERIN 0.4MG SUBL TABLET SL PRN (15:55)
[2022-08-11] MEDS ORDERED: ONDANSETRON 4MG TAB PO PRN (15:55)
[2022-08-11] MEDS ORDERED: LOMOTIL 2.5MG/0.025MG TABLET PO PRN (15:55)
[2022-08-11] MEDS ORDERED: **hydrALAZINE** 50 MG TAB PO SCH (16:00)
[2022-08-11] MEDS ORDERED: prednisoLONE ACET 1% OPHTH SUSP 5ML OU SCH (17:00)
[2022-08-11] MEDS ORDERED: PRED20TA PO (18:14)
[2022-08-11] MEDS ORDERED: ESCITALOPRAM OXALATE 10 MG TAB (LEXAPRO) PO SCH (21:00)
[2022-08-11] MEDS ORDERED: CARVedilol 12.5 MG TAB PO SCH (21:00)
[2022-08-11] MEDS ORDERED: ERYTHROMYCIN OPHTH OINT OU SCH (21:00)
[2022-08-11] MEDS ORDERED: ASPIRIN 81MG ENTERIC TABLET PO SCH (21:00)
[2022-08-11] MEDS ORDERED: traZODone 50 MG TAB PO SCH (21:00)
[2022-08-11] MEDS ORDERED: MYFORTIC 180 MG PO SCH (21:00)
[2022-08-11] MEDS ORDERED: SODIUM BICARBONATE 325 MG TAB PO SCH (21:00)
[2022-08-12] MEDS ORDERED: predniSONE 5 MG TAB PO SCH (09:00)
[2022-08-12] MEDS ORDERED: LACTOBACILLUS ACIDOPHILUS CAP (BACID) PO SCH (09:00)
[2022-08-12] MEDS ORDERED: MONTELUKAST 10 MG TAB PO SCH (09:00)
[2022-08-12] MEDS ORDERED: LOSARTAN 50MG TABLET PO SCH (09:00)
[2022-08-12] MEDS ORDERED: PANTOPRAZOLE 40MG TAB (PROTONIX) PO SCH (09:00)
[2022-08-12] MEDS ORDERED: FEBUXOSTAT 40 MG TABLET (ULORIC) PO SCH (09:00)
[2022-08-12] MEDS ORDERED: TORSEMIDE 20 MG TAB PO SCH (09:00)
[2022-08-16] MEDS ORDERED: VITAMIN D 50,000 UNITS CAPSULE (ERGOCALCIFEROL 1.25MG) PO SCH (09:00)
== END 2022-08-11 19:20 | disposition home or self-care (01) | DRG 683 ==
LOC: M MS5PR 22:17
PROVIDERS: ADMIT Internal Medicine; ATTEND Internal Medicine
DX: N17.9 Acute kidney failure, unspecified (principal); D61.818 Other pancytopenia; Z94.0 Kidney transplant status; H20.9 Unspecified iridocyclitis; I50.42 Chronic combined systolic (congestive) and diastolic (congestive) heart failure; D68.59 Other primary thrombophilia; I13.2 Hypertensive heart and chronic kidney disease with heart failure and with stage 5 chronic kidney disease, or end stage renal disease; R19.7 Diarrhea, unspecified; G47.33 Obstructive sleep apnea (adult) (pediatric); J45.909 Unspecified asthma, uncomplicated; M10.9 Gout, unspecified; K21.9 Gastro-esophageal reflux disease without esophagitis; Z79.52 Long term (current) use of systemic steroids; N18.6 End stage renal disease; J44.9 Chronic obstructive pulmonary disease, unspecified; I27.20 Pulmonary hypertension, unspecified; Z88.5 Allergy status to narcotic agent; Z79.899 Other long term (current) drug therapy; Z79.82 Long term (current) use of aspirin; E66.01 Morbid (severe) obesity due to excess calories

== ENCOUNTER → 2022-08-27 | Outpatient (CLI) | payer OTHER ==
[~2022-08-27] MED LIST changes: +LIDOCAINE 1% MDV 20ML VIAL As Ordered ONE; +PRED20TA PO
[2022-08-27 08:51] LABS: BASO % 0.2 % (0.0-1.0); HEMATOCRIT 35.2 % (42.0-52.0); HEMOGLOBIN 10.6 g/dl (13.5-17.5); LYMPH # 0.7 10^3/uL (1.5-5.0); LYMPH % 13.7 % (24.0-44.0); MEAN CORPUSCULAR HEMOGLOBIN 28.8 pg (27.0-33.0); MEAN CORPUSCULAR HGB CONC 30.1 g/dl (32.0-36.5); MEAN CORPUSCULAR VOLUME 95.7 fl (80.0-96.0); MONO # 0.3 10^3/uL (0.0-0.8); MONO % 6.6 % (2.0-8.0); NEUTROPHILS # 3.8 10^3/uL (1.5-8.5); NEUTROPHILS % 76.1 % (36.0-66.0); PLATELET COUNT, AUTOMATED 171 10^3/uL (150-450); RED BLOOD COUNT 3.68 10^6/uL (4.30-6.10)
[2022-08-27 09:50] VITALS: BP 179/89
== END ==
LOC: M IRPRO 08:13
PROVIDERS: ATTEND Internal Medicine Hematology & Oncology
DX: D61.818 Other pancytopenia (principal)

== ENCOUNTER 2023-01-29 09:07 | Inpatient (IN) | payer OTHER ==
[2023-01-29] VITALS (9 sets, daily range): BP systolic 136–145; BP diastolic 75–82; TEMP 97.9; O2SAT 80–97
[~2023-01-29] VITALS: Ht 185.4 cm; Wt 107.0 kg
[~2023-01-29 09:07] MED LIST changes: +AZAT50TA37 PO; +CALC1CAP31 PO; +DIPH2.5T15; -GABA-283 PO; +GABA-284 PO; -LIDOCAINE 1% MDV 20ML VIAL As Ordered ONE
[2023-01-29] MEDS ORDERED: METH4PACK (10:01)
[2023-01-29] MEDS ORDERED: ENVA200T (10:03)
[2023-01-29 10:45] LABS: BASO % 0.5 % (0.0-1.0); HEMATOCRIT 33.8 % (42.0-52.0); LYMPH # 0.3 10^3/uL (1.5-5.0); LYMPH % 13.7 % (24.0-44.0); MEAN CORPUSCULAR HEMOGLOBIN 32.3 pg (27.0-33.0); MEAN CORPUSCULAR HGB CONC 32.5 g/dl (32.0-36.5); MEAN CORPUSCULAR VOLUME 99.1 fl (80.0-96.0); MONO # 0.2 10^3/uL (0.0-0.8); MONO % 8.6 % (2.0-8.0); NEUTROPHILS # 1.5 10^3/uL (1.5-8.5); NEUTROPHILS % 74.7 % (36.0-66.0); RED BLOOD COUNT 3.41 10^6/uL (4.30-6.10)
[2023-01-29] MEDS ORDERED: ONDANSETRON 4MG 2ML VIAL IV ONE (10:45)
[2023-01-29] MEDS ORDERED: NS 500 ML IV ONE (10:45)
[2023-01-29] MEDS ORDERED: fentaNYL 100 MCG/2 ML INJECTION IV ONE (10:45)
[2023-01-29 11:13] LABS: ALBUMIN 3.5 G/DL (3.2-5.2); BILIRUBIN,DIRECT 0.4 MG/DL (<0.4); BILIRUBIN,TOTAL 1.1 MG/DL (0.3-1.2); CALCIUM LEVEL 8.3 MG/DL (8.5-10.1); CREATININE FOR GFR 2.76 MG/DL (0.70-1.30); GLOMERULAR FILTRATION RATE 25.7 (>56); POTASSIUM SERUM 4.6 MMOL/L (3.5-5.1); TOTAL PROTEIN 6.2 G/DL (5.7-8.2)
[2023-01-29 11:16] LABS: PLATELET COUNT, AUTOMATED 95 10^3/uL (150-450)
[2023-01-29] MEDS ORDERED: PIPERACILLIN/TAZOBACTAM SOD 3.375 GM in D5W MINI-BAG PLUS 50 ML IV ONE (11:40)
[2023-01-29] MEDS ORDERED: MED REC IN PROGRESS XX SCH (12:30)
[2023-01-29] MEDS ORDERED: cefTRIAXone SOD 1 GM in D5W MINI-BAG PLUS 50 ML IV SCH (12:40)
[2023-01-29] MEDS ORDERED: PRED5TA PO (13:07)
[2023-01-29] MEDS ORDERED: LOSA100T46 PO (13:07)
[2023-01-29] MEDS ORDERED: D-10TAB3 PO (13:07)
[2023-01-29] MEDS ORDERED: HOME MED LIST COMPLETE! XX SCH (13:15)
[2023-01-29] MEDS ORDERED: LR 1,000 ML IV SCH (13:45)
[2023-01-29] MEDS ORDERED: ALBUTEROL SULFATE 2.5MG/0.5ML INH NEB SOLN NEB PRN (13:45)
[2023-01-29] MEDS: ONDANSETRON 4MG 2ML VIAL IV PRN (14:34)
[2023-01-29] MEDS ORDERED: HYDROMORPHONE HCL 0.5 MG/ 0.5 ML SYRINGE IV ONE (14:40)
[2023-01-29] MEDS: cefTRIAXone SOD 2 GM in D5W MINI-BAG PLUS 50 ML IV SCH (16:18)
[2023-01-29] MEDS: **hydrALAZINE** 50 MG TAB PO SCH ×2 (16:18→20:36)
[2023-01-29] MEDS: metroNIDAZOLE 500 MG in IV 1 EA IV SCH (17:02)
[2023-01-29] MEDS: HYDROMORPHONE HCL 0.5 MG/ 0.5 ML SYRINGE IV PRN ×2 (18:50→21:55)
[2023-01-29] MEDS ORDERED: PROMETHAZINE 25MG/ML 1ML VIAL IV PRN (20:05)
[2023-01-29] MEDS: ASPIRIN 81MG ENTERIC TABLET PO SCH (20:34)
[2023-01-29] MEDS: CARVedilol 12.5 MG TAB PO SCH (20:35)
[2023-01-29] MEDS: SODIUM BICARBONATE 325 MG TAB PO SCH (20:35)
[2023-01-29] MEDS: traZODone 50 MG TAB PO SCH (20:35)
[2023-01-29] MEDS: ESCITALOPRAM OXALATE 10 MG TAB (LEXAPRO) PO SCH (20:35)
[2023-01-29] MEDS: SYMBICORT 160/4.5MCG INHALER 6GM INH SCH (20:47)
[2023-01-30] MEDS: HYDROMORPHONE HCL 0.5 MG/ 0.5 ML SYRINGE IV PRN ×5 (01:41→22:34)
[2023-01-30] MEDS: metroNIDAZOLE 500 MG in IV 1 EA IV SCH ×3 (03:29→18:22)
[2023-01-30 06:00] VITALS: BP 127/73; TEMP 98.1; O2SAT 95
[2023-01-30] MEDS: TIOTROPIUM INHALER/CAPSULE (SPIRIVA) INH SCH (07:50)
[2023-01-30] MEDS: SYMBICORT 160/4.5MCG INHALER 6GM INH SCH ×2 (07:50→19:14)
[2023-01-30 08:40] LABS: CALCIUM LEVEL 7.4 MG/DL (8.5-10.1); CREATININE FOR GFR 2.76 MG/DL (0.70-1.30); GLOMERULAR FILTRATION RATE 25.7 (>56); POTASSIUM SERUM 4.3 MMOL/L (3.5-5.1)
[2023-01-30] MEDS: ENVARSUS 0.75 MG PO SCH (08:50)
[2023-01-30] MEDS: SODIUM BICARBONATE 325 MG TAB PO SCH ×2 (08:52→20:25)
[2023-01-30] MEDS: CALCITRIOL 0.25 MCG CAP (S0169) PO SCH (08:53)
[2023-01-30] MEDS: MONTELUKAST 10 MG TAB PO SCH (08:53)
[2023-01-30] MEDS: predniSONE 5 MG TAB PO SCH (08:54)
[2023-01-30] MEDS: PANTOPRAZOLE 40MG TAB (PROTONIX) PO SCH (08:54)
[2023-01-30] MEDS: **hydrALAZINE** 50 MG TAB PO SCH ×3 (08:57→20:25)
[2023-01-30] MEDS: CARVedilol 12.5 MG TAB PO SCH ×2 (08:57→20:26)
[2023-01-30] MEDS: LOSARTAN 50MG TABLET PO SCH (08:58)
[2023-01-30] MEDS ORDERED: TACROLIMUS 1MG CAP PO SCH (09:00)
[2023-01-30 09:36] LABS: BASO % 0.8 % (0.0-1.0); EOS % 3.1 % (0.0-3.0); HEMATOCRIT 28.9 % (42.0-52.0); HEMOGLOBIN 9.4 g/dl (13.5-17.5); LYMPH # 0.4 10^3/uL (1.5-5.0); LYMPH % 28.5 % (24.0-44.0); MEAN CORPUSCULAR HEMOGLOBIN 32.9 pg (27.0-33.0); MEAN CORPUSCULAR HGB CONC 32.5 g/dl (32.0-36.5); MONO # 0.1 10^3/uL (0.0-0.8); NEUTROPHILS % 56.8 % (36.0-66.0); RED BLOOD COUNT 2.86 10^6/uL (4.30-6.10); WHITE BLOOD COUNT 1.3 10^3/uL (4.0-10.0)
[2023-01-30 09:59] LABS: PLATELET COUNT, AUTOMATED 86 10^3/uL (150-450)
[2023-01-30 10:00] LABS: NEUTROPHILS # 0.7 10^3/uL (1.5-8.5)
[2023-01-30 14:00] VITALS: BP 131/63; TEMP 97.7; O2SAT 97
[2023-01-30] MEDS: cefTRIAXone SOD 2 GM in D5W MINI-BAG PLUS 50 ML IV SCH (17:24)
[2023-01-30] MEDS: ASPIRIN 81MG ENTERIC TABLET PO SCH (20:24)
[2023-01-30] MEDS: traZODone 50 MG TAB PO SCH (20:24)
[2023-01-30] MEDS: ESCITALOPRAM OXALATE 10 MG TAB (LEXAPRO) PO SCH (20:25)
[2023-01-30 21:00] VITALS: BP 150/92; TEMP 97.2; O2SAT 94
[2023-01-31] MEDS: metroNIDAZOLE 500 MG in IV 1 EA IV SCH ×3 (03:22→18:30)
[2023-01-31] MEDS: HYDROMORPHONE HCL 0.5 MG/ 0.5 ML SYRINGE IV PRN ×5 (03:22→22:46)
[2023-01-31 06:00] VITALS: BP 115/47; TEMP 97.7; O2SAT 97
[2023-01-31 06:06] LABS: EOS % 2.5 % (0.0-3.0); HEMATOCRIT 28.1 % (42.0-52.0); HEMOGLOBIN 8.8 g/dl (13.5-17.5); LYMPH # 0.4 10^3/uL (1.5-5.0); LYMPH % 33.9 % (24.0-44.0); MEAN CORPUSCULAR HEMOGLOBIN 32.5 pg (27.0-33.0); MEAN CORPUSCULAR HGB CONC 31.3 g/dl (32.0-36.5); MEAN CORPUSCULAR VOLUME 103.7 fl (80.0-96.0); MONO # 0.1 10^3/uL (0.0-0.8); MONO % 11.9 % (2.0-8.0); NEUTROPHILS % 50.9 % (36.0-66.0); RED BLOOD COUNT 2.71 10^6/uL (4.30-6.10); WHITE BLOOD COUNT 1.2 10^3/uL (4.0-10.0)
[2023-01-31 06:33] LABS: CALCIUM LEVEL 7.5 MG/DL (8.5-10.1); CREATININE FOR GFR 2.96 MG/DL (0.70-1.30); GLOMERULAR FILTRATION RATE 23.7 (>56); POTASSIUM SERUM 4.4 MMOL/L (3.5-5.1)
[2023-01-31 06:54] LABS: PLATELET COUNT, AUTOMATED 68 10^3/uL (150-450)
[2023-01-31 06:55] LABS: NEUTROPHILS # 0.6 10^3/uL (1.5-8.5)
[2023-01-31 07:16] VITALS: O2SAT 95
[2023-01-31] MEDS: TIOTROPIUM INHALER/CAPSULE (SPIRIVA) INH SCH (07:16)
[2023-01-31] MEDS: SYMBICORT 160/4.5MCG INHALER 6GM INH SCH ×2 (07:16→21:37)
[2023-01-31] MEDS: ENVARSUS 0.75 MG PO SCH (08:46)
[2023-01-31] MEDS: SODIUM BICARBONATE 325 MG TAB PO SCH ×2 (08:46→19:52)
[2023-01-31] MEDS: LOSARTAN 50MG TABLET PO SCH (08:47)
[2023-01-31] MEDS: MONTELUKAST 10 MG TAB PO SCH (08:48)
[2023-01-31] MEDS: CALCITRIOL 0.25 MCG CAP (S0169) PO SCH (08:48)
[2023-01-31] MEDS: CARVedilol 12.5 MG TAB PO SCH ×2 (08:48→19:50)
[2023-01-31] MEDS: predniSONE 5 MG TAB PO SCH (08:48)
[2023-01-31] MEDS: **hydrALAZINE** 50 MG TAB PO SCH ×3 (08:48→19:51)
[2023-01-31] MEDS: PANTOPRAZOLE 40MG TAB (PROTONIX) PO SCH (08:48)
[2023-01-31] MEDS ORDERED: D5W 1,000 ML IV SCH (09:25)
[2023-01-31 13:35] LABS: FOLATE 5.1 NG/ML (>5.4)
[2023-01-31 14:00] VITALS: BP 120/60; TEMP 98.1; O2SAT 94
[2023-01-31 15:23] LABS: CALCIUM LEVEL 7.6 MG/DL (8.5-10.1); CREATININE FOR GFR 2.84 MG/DL (0.70-1.30); GLOMERULAR FILTRATION RATE 24.9 (>56); POTASSIUM SERUM 4.4 MMOL/L (3.5-5.1)
[2023-01-31] MEDS: cefTRIAXone SOD 2 GM in D5W MINI-BAG PLUS 50 ML IV SCH (17:37)
[2023-01-31 19:45] VITALS: BP 145/71; TEMP 98.4; O2SAT 95
[2023-01-31] MEDS: traZODone 50 MG TAB PO SCH (19:51)
[2023-01-31] MEDS: ESCITALOPRAM OXALATE 10 MG TAB (LEXAPRO) PO SCH (19:51)
[2023-01-31] MEDS: ASPIRIN 81MG ENTERIC TABLET PO SCH (19:52)
[2023-01-31] MEDS: ONDANSETRON 4MG 2ML VIAL IV PRN (20:05)
[2023-02-01] MEDS: metroNIDAZOLE 500 MG in IV 1 EA IV SCH ×2 (02:56→10:30)
[2023-02-01 05:24] VITALS: BP 145/75; TEMP 99.1; O2SAT 95
[2023-02-01 06:24] LABS: BASO % 0.8 % (0.0-1.0); EOS # 0.1 10^3/uL (0.0-0.5); EOS % 4.6 % (0.0-3.0); HEMATOCRIT 27.5 % (42.0-52.0); HEMOGLOBIN 8.8 g/dl (13.5-17.5); LYMPH # 0.5 10^3/uL (1.5-5.0); LYMPH % 36.6 % (24.0-44.0); MEAN CORPUSCULAR HEMOGLOBIN 32.2 pg (27.0-33.0); MEAN CORPUSCULAR VOLUME 100.7 fl (80.0-96.0); MONO # 0.1 10^3/uL (0.0-0.8); MONO % 9.9 % (2.0-8.0); NEUTROPHILS % 48.1 % (36.0-66.0); RED BLOOD COUNT 2.73 10^6/uL (4.30-6.10); WHITE BLOOD COUNT 1.3 10^3/uL (4.0-10.0)
[2023-02-01 06:27] LABS: NEUTROPHILS # 0.6 10^3/uL (1.5-8.5); PLATELET COUNT, AUTOMATED 87 10^3/uL (150-450)
[2023-02-01 06:37] LABS: CALCIUM LEVEL 7.8 MG/DL (8.5-10.1); CREATININE FOR GFR 2.85 MG/DL (0.70-1.30); GLOMERULAR FILTRATION RATE 24.8 (>56); POTASSIUM SERUM 4.2 MMOL/L (3.5-5.1)
[2023-02-01 07:26] VITALS: O2SAT 90
[2023-02-01] MEDS: SYMBICORT 160/4.5MCG INHALER 6GM INH SCH (07:26)
[2023-02-01] MEDS: TIOTROPIUM INHALER/CAPSULE (SPIRIVA) INH SCH (07:26)
[2023-02-01 07:29] VITALS: O2SAT 90
[2023-02-01] MEDS ORDERED: DARBEPOETIN 100MCG/0.5ML *NON-DIALYSIS* SYRINGE SC SCH (09:00)
[2023-02-01] MEDS: PANTOPRAZOLE 40MG TAB (PROTONIX) PO SCH (09:35)
[2023-02-01] MEDS: CARVedilol 12.5 MG TAB PO SCH (09:35)
[2023-02-01 09:36] VITALS: BP 145/75
[2023-02-01] MEDS: LOSARTAN 50MG TABLET PO SCH (09:36)
[2023-02-01] MEDS: **hydrALAZINE** 50 MG TAB PO SCH (09:36)
[2023-02-01] MEDS: SODIUM BICARBONATE 325 MG TAB PO SCH (09:36)
[2023-02-01] MEDS: predniSONE 5 MG TAB PO SCH (09:36)
[2023-02-01] MEDS: CALCITRIOL 0.25 MCG CAP (S0169) PO SCH (09:36)
[2023-02-01] MEDS: MONTELUKAST 10 MG TAB PO SCH (09:36)
[2023-02-01] MEDS: ENVARSUS 0.75 MG PO SCH (09:37)
[2023-02-01] MEDS ORDERED: CIPR-249 PO (10:49)
[2023-02-01] MEDS ORDERED: METR-265 PO ×3 (10:50→11:35)
[2023-02-01] MEDS ORDERED: FOLI1TAB11 PO (10:51)
[2023-02-01] MEDS ORDERED: VITA100018 PO ×2 (10:53→11:18)
[2023-02-01] MEDS ORDERED: OXYC1TAB23 PO (14:22)
== END 2023-02-01 16:13 | disposition home or self-care (01) | DRG 392 ==
LOC: M ED 09:07 → M ED INP 12:38 → ENRESERV 14:05 → M MSPAV 15:20
PROVIDERS: ADMIT Internal Medicine Nephrology; ATTEND Internal Medicine
DX: K57.32 Diverticulitis of large intestine without perforation or abscess without bleeding (principal); N18.4 Chronic kidney disease, stage 4 (severe); Z94.0 Kidney transplant status; I50.42 Chronic combined systolic (congestive) and diastolic (congestive) heart failure; I13.0 Hypertensive heart and chronic kidney disease with heart failure and stage 1 through stage 4 chronic kidney disease, or unspecified chronic kidney disease; Q44.6 Cystic disease of liver; D61.818 Other pancytopenia; N17.9 Acute kidney failure, unspecified; D68.59 Other primary thrombophilia; D84.9 Immunodeficiency, unspecified; E87.0 Hyperosmolality and hypernatremia; K21.9 Gastro-esophageal reflux disease without esophagitis; M10.9 Gout, unspecified; K44.9 Diaphragmatic hernia without obstruction or gangrene; G62.9 Polyneuropathy, unspecified; J44.9 Chronic obstructive pulmonary disease, unspecified; G47.33 Obstructive sleep apnea (adult) (pediatric); E21.3 Hyperparathyroidism, unspecified; Z86.16 Personal history of COVID-19; E66.9 Obesity, unspecified; I27.20 Pulmonary hypertension, unspecified; Z85.828 Personal history of other malignant neoplasm of skin; Z87.891 Personal history of nicotine dependence; F32.A Depression, unspecified; G47.00 Insomnia, unspecified; Z79.82 Long term (current) use of aspirin; Z79.52 Long term (current) use of systemic steroids; Z79.899 Other long term (current) drug therapy; Z20.822 Contact with and (suspected) exposure to COVID-19; Z88.5 Allergy status to narcotic agent; Z91.041 Radiographic dye allergy status

== ENCOUNTER 2023-07-05 10:35 | Inpatient (IN) | payer OTHER ==
[~2023-07-05] VITALS: Ht 185.4 cm; Wt 110.0 kg
[~2023-07-05 10:35] MED LIST changes: +AZEL1SPR3 NARES; +CIPR-249 PO; +D-10TAB3 PO; +ENVA200T; +FEBU40TA6 PO; +FOLI1TAB11 PO; -HYDR-3910 PO; -HYDR-3911 PO; +HYDR-4514 PO; -HYDR25TA PO; +HYDR25TA87 PO; +HYDR25TA88 PO; -HYDR50TA PO; +HYDR50TA46 PO; +HYDR50TA47 PO; +LOSA100T46 PO; +METH4PACK; +METR-265 PO; +OXYC1TAB23 PO; +PROC10TA5 PO; +VITA100018 PO
[2023-07-05 11:57] LABS: BASO % 0.3 % (0.0-1.0); HEMATOCRIT 38.4 % (42.0-52.0); HEMOGLOBIN 12.2 g/dl (13.5-17.5); LYMPH # 0.6 10^3/uL (1.5-5.0); LYMPH % 18.7 % (24.0-44.0); MEAN CORPUSCULAR HEMOGLOBIN 29.2 pg (27.0-33.0); MEAN CORPUSCULAR HGB CONC 31.8 g/dl (32.0-36.5); MEAN CORPUSCULAR VOLUME 91.9 fl (80.0-96.0); MONO # 0.3 10^3/uL (0.0-0.8); NEUTROPHILS # 2.2 10^3/uL (1.5-8.5); NEUTROPHILS % 70.7 % (36.0-66.0); PLATELET COUNT, AUTOMATED 136 10^3/uL (150-450); RED BLOOD COUNT 4.18 10^6/uL (4.30-6.10); WHITE BLOOD COUNT 3.1 10^3/uL (4.0-10.0)
[2023-07-05 12:27] LABS: LIPASE 68 U/L (12-53)
[2023-07-05] MEDS: NS 1,000 ML IV ONE (12:27)
[2023-07-05] MEDS: fentaNYL 100 MCG/2 ML INJECTION IV ONE (12:27)
[2023-07-05 12:29] LABS: ALBUMIN 3.2 G/DL (3.2-5.2); ALKALINE PHOSPHATASE 50 U/L (46-116); ALT/SGPT < 9 U/L (7.0-40); AST/SGOT 11 U/L (<34); BILIRUBIN,DIRECT 0.4 MG/DL (<0.4); BILIRUBIN,TOTAL 0.8 MG/DL (0.3-1.2); TOTAL PROTEIN 5.9 G/DL (5.7-8.2)
[2023-07-05 12:30] LABS: CALCIUM LEVEL 8.7 MG/DL (8.5-10.1); CREATININE FOR GFR 3.49 MG/DL (0.70-1.30); GLOMERULAR FILTRATION RATE 19.5 (>56); POTASSIUM SERUM 4.8 MMOL/L (3.5-5.1)
[2023-07-05] MEDS: ONDANSETRON 4MG 2ML VIAL IV ONE (12:52)
[2023-07-05] MEDS ORDERED: MED REC IN PROGRESS XX SCH (13:40)
[2023-07-05] MEDS: PIPERACILLIN/TAZOBACTAM SOD 2.25 GM in D5W MINI-BAG PLUS 50 ML IV ONE (14:33)
[2023-07-05] MEDS ORDERED: **NOTE PATIENT COMMENT** MISC XX SCH ×2 (14:45→17:15)
[2023-07-05 16:05] VITALS: BP 136/76; TEMP 97.5; O2SAT 95
[2023-07-05] MEDS: HYDROMORPHONE HCL 0.5 MG/ 0.5 ML SYRINGE IV PRN (16:17)
[2023-07-05] MEDS: NS 1,000 ML IV SCH (16:17)
[2023-07-05 16:35] LABS: INR 1.22; PROTHROMBIN TIME 15.1 SECONDS (12.5-14.5)
[2023-07-05 16:36] LABS: PARTIAL THROMBOPLASTIN TIME 30.2 SECONDS (24.8-34.2)
[2023-07-05] MEDS ORDERED: HOME MED LIST COMPLETE! XX SCH (16:50)
[2023-07-05] MEDS: SUCRALFATE SUSP 1GM/10ML UD PO SCH (17:54)
[2023-07-05] MEDS: IPRATROPIUM 0.5MG/ALBUTEROL 2.5MG INH SOL UD 3ML (DUONEB) NEB SCH (19:24)
[2023-07-05] MEDS: cefTRIAXone SOD 2 GM in D5W MINI-BAG PLUS 50 ML IV SCH (20:18)
[2023-07-05] MEDS: SODIUM BICARBONATE 325 MG TAB PO SCH (20:18)
[2023-07-05] MEDS: PANTOPRAZOLE 40MG VIAL IV SCH (20:18)
[2023-07-05] MEDS: ESCITALOPRAM OXALATE 10 MG TAB (LEXAPRO) PO SCH (20:19)
[2023-07-05] MEDS: traZODone 50 MG TAB PO SCH (20:19)
[2023-07-05] MEDS: CARVedilol 12.5 MG TAB PO SCH (20:21)
[2023-07-05] MEDS: HYDROCORTISONE 100MG/2ML VIAL IV SCH (20:25)
[2023-07-05 21:49] VITALS: BP 134/74; TEMP 97.3; O2SAT 91
[2023-07-06] VITALS (8 sets, daily range): BP systolic 132–151; BP diastolic 71–83; TEMP 97.3–97.7; O2SAT 90–96
[2023-07-06] MEDS: ACETAMINOPHEN TAB 650MG DOSE (2X325MG) PO PRN (05:40)
[2023-07-06] MEDS: ONDANSETRON 4MG 2ML VIAL IV ONE (05:40)
[2023-07-06 06:44] LABS: HEMATOCRIT 32.4 % (42.0-52.0); HEMOGLOBIN 10.3 g/dl (13.5-17.5); MEAN CORPUSCULAR HEMOGLOBIN 29.7 pg (27.0-33.0); MEAN CORPUSCULAR HGB CONC 31.8 g/dl (32.0-36.5); MEAN CORPUSCULAR VOLUME 93.4 fl (80.0-96.0); PLATELET COUNT, AUTOMATED 111 10^3/uL (150-450); RED BLOOD COUNT 3.47 10^6/uL (4.30-6.10); WHITE BLOOD COUNT 2.4 10^3/uL (4.0-10.0)
[2023-07-06 07:14] LABS: ALBUMIN 2.7 G/DL (3.2-5.2); CALCIUM LEVEL 7.4 MG/DL (8.5-10.1); CREATININE FOR GFR 3.6 MG/DL (0.70-1.30); GLOMERULAR FILTRATION RATE 18.8 (>56); MAGNESIUM LEVEL 1.7 MG/DL (1.8-2.4); PHOSPHORUS LEVEL 3.7 MG/DL (2.5-4.9); POTASSIUM SERUM 4.6 MMOL/L (3.5-5.1)
[2023-07-06] MEDS: CALCITRIOL 0.25 MCG CAP (S0169) PO SCH (11:20)
[2023-07-06] MEDS: MONTELUKAST 10 MG TAB PO SCH (11:20)
[2023-07-06] MEDS: FEBUXOSTAT 40 MG TABLET (ULORIC) PO SCH (11:20)
[2023-07-06] MEDS: FOLIC ACID 1MG TAB PO SCH (11:21)
[2023-07-06] MEDS: MAG SULF 1GM/100ML (MAG RUN) 1 GM in IV 1 EA IV ONE (11:55)
[2023-07-06] MEDS: ADVAIR HFA 230/21MCG INHALER INH SCH (11:58)
[2023-07-06] MEDS: TIOTROPIUM INHALER/CAPSULE (SPIRIVA) INH SCH (11:58)
[2023-07-06] MEDS: ONDANSETRON 4MG 2ML VIAL IV PRN (14:02)
[2023-07-06] MEDS: metroNIDAZOLE 500 MG in IV 1 EA IV SCH (14:02)
[2023-07-06] MEDS: ENVARSUS 0.75 MG PO SCH (15:29)
[2023-07-06] MEDS: SODIUM CHLORIDE NASAL 0.65% SPRAY BTL (OCEAN) SCH (17:45)
[2023-07-06] MEDS ORDERED: SYMBICORT 160/4.5MCG INHALER 6GM INH SCH (20:00)
[2023-07-06] MEDS: ASPIRIN 81MG ENTERIC TABLET PO SCH (20:26)
[2023-07-07] VITALS (31 sets, daily range): BP systolic 128–243; BP diastolic 72–118; TEMP 97.3–101.2; O2SAT 86–99
[2023-07-07 01:35] LABS: HEMATOCRIT 29.9 % (42.0-52.0); HEMOGLOBIN 9.5 g/dl (13.5-17.5); MEAN CORPUSCULAR HEMOGLOBIN 29.7 pg (27.0-33.0); MEAN CORPUSCULAR HGB CONC 31.8 g/dl (32.0-36.5); MEAN CORPUSCULAR VOLUME 93.4 fl (80.0-96.0); PLATELET COUNT, AUTOMATED 128 10^3/uL (150-450); WHITE BLOOD COUNT 3.7 10^3/uL (4.0-10.0)
[2023-07-07 01:46] LABS: INR 1.44; PROTHROMBIN TIME 17.1 SECONDS (12.5-14.5)
[2023-07-07 01:47] LABS: PARTIAL THROMBOPLASTIN TIME 34.9 SECONDS (24.8-34.2)
[2023-07-07 02:46] LABS: ALBUMIN 2.4 G/DL (3.2-5.2); ALKALINE PHOSPHATASE 37 U/L (46-116); ALT/SGPT < 9 U/L (7.0-40); AST/SGOT 8 U/L (<34); BILIRUBIN,TOTAL 0.3 MG/DL (0.3-1.2); BLOOD UREA NITROGEN 39 MG/DL (9-23); CALCIUM LEVEL 7.4 MG/DL (8.5-10.1); CARBON DIOXIDE LEVEL 21 MMOL/L (20-31); CHLORIDE LEVEL 114 MMOL/L (98-107); CREATININE FOR GFR 3.34 MG/DL (0.70-1.30); GLOMERULAR FILTRATION RATE 20.5 (>56); GLUCOSE, FASTING 108 MG/DL (60-100); POTASSIUM SERUM 4.4 MMOL/L (3.5-5.1); SODIUM LEVEL 142 MMOL/L (136-145); TOTAL PROTEIN 4.9 G/DL (5.7-8.2)
[2023-07-07 05:53] LABS: HEMATOCRIT 27.1 % (42.0-52.0); HEMOGLOBIN 8.6 g/dl (13.5-17.5); MEAN CORPUSCULAR HEMOGLOBIN 29.7 pg (27.0-33.0); MEAN CORPUSCULAR HGB CONC 31.7 g/dl (32.0-36.5); MEAN CORPUSCULAR VOLUME 93.4 fl (80.0-96.0); PLATELET COUNT, AUTOMATED 129 10^3/uL (150-450); WHITE BLOOD COUNT 3.3 10^3/uL (4.0-10.0)
[2023-07-07] MEDS: HYDROMORPHONE HCL 0.5 MG/ 0.5 ML SYRINGE IV PRN (06:10)
[2023-07-07 06:22] LABS: ALBUMIN 2.5 G/DL (3.2-5.2); CALCIUM LEVEL 7.2 MG/DL (8.5-10.1); CREATININE FOR GFR 3.14 MG/DL (0.70-1.30); GLOMERULAR FILTRATION RATE 22.1 (>56); MAGNESIUM LEVEL 1.8 MG/DL (1.8-2.4); PHOSPHORUS LEVEL 2.3 MG/DL (2.5-4.9); POTASSIUM SERUM 4.6 MMOL/L (3.5-5.1)
[2023-07-07] MEDS ORDERED: NON-FORMULARY 1 EA EA PO SCH (09:00)
[2023-07-07 09:10] LABS: HEMATOCRIT 19.6 % (42.0-52.0)
[2023-07-07] MEDS: OXYMETAZOLINE 0.05% NASAL SPRAY (AFRIN) As Ordered ONE (10:15)
[2023-07-07] MEDS: COCAINE 4% 4ML NASAL SOLUTION BTL As Ordered ONE (10:16)
[2023-07-07] MEDS ORDERED: fentaNYL 100 MCG/2 ML INJECTION As Ordered ONE (10:17)
[2023-07-07] MEDS ORDERED: SUGAMMADEX SODIUM 500 MG/5 ML VIAL (BRIDION) As Ordered ONE (10:17)
[2023-07-07] MEDS ORDERED: propofoL 200 MG/20 ML VIAL As Ordered ONE (10:17)
[2023-07-07] MEDS ORDERED: ROCURONIUM BROMIDE 50MG/5ML VIAL As Ordered ONE (10:17)
[2023-07-07] MEDS ORDERED: LIDOCAINE 2% 100MG/5ML SDV (FOR ANES.) As Ordered ONE (10:17)
[2023-07-07] MEDS ORDERED: ONDANSETRON 4MG 2ML VIAL As Ordered ONE (10:17)
[2023-07-07] MEDS ORDERED: MIDAZOLAM INJ 2MG/2ML VIAL As Ordered ONE (10:17)
[2023-07-07] MEDS ORDERED: SUCCINYLCHOLINE 100MG/5ML SYRINGE As Ordered ONE (10:17)
[2023-07-07] MEDS ORDERED: PHENYLephrine 500MCG 5ML (100MCG/ML) SYRINGE As Ordered ONE (10:18)
[2023-07-07] MEDS ORDERED: LABETALOL 100MG/20ML VIAL As Ordered ONE (10:25)
[2023-07-07] MEDS ORDERED: hydrALAZINE 20MG/ML 1ML VIAL As Ordered ONE (10:32)
[2023-07-07] MEDS: LIDOCAINE W/EPINEPHRINE 1% 20ML VIAL As Ordered ONE (10:45)
[2023-07-07] MEDS ORDERED: fentaNYL 100 MCG/2 ML INJECTION IV PRN (10:50)
[2023-07-07] MEDS ORDERED: HYDROMORPHONE HCL 0.5 MG/ 0.5 ML SYRINGE IV PRN (10:50)
[2023-07-07] MEDS ORDERED: oxyCODONE 5MG TAB PO PRN (10:50)
[2023-07-07] MEDS: ONDANSETRON 4MG 2ML VIAL IV PRN (11:32)
[2023-07-07] MEDS: LR 1,000 ML IV SCH (12:39)
[2023-07-07] MEDS ORDERED: ONDANSETRON 4MG ORAL DISINTEGRATING TAB PO ONE (13:05)
[2023-07-07] MEDS: SODIUM CHLORIDE 0.9% INJ 10 ML SYR IV SCH (14:25)
[2023-07-07] MEDS ORDERED: SODIUM CHLORIDE 0.9% INJ 10 ML SYR IV PRN (14:25)
[2023-07-07] MEDS: hydrALAZINE 20MG/ML 1ML VIAL IV ONE ×2 (14:51→15:57)
[2023-07-07] MEDS: cloNIDine 0.2 MG TAB PO ONE (15:00)
[2023-07-07] MEDS: ACETAMINOPHEN *IV* 1,000 MG in IV 1 EA IV ONE ×2 (15:31→22:41)
[2023-07-07] MEDS: PROCHLORPERAZINE 10MG 2ML VIAL IV PRN (16:10)
[2023-07-07] MEDS: cloNIDine HCL 0.2 MG/24 HR PATCH TOP SCH (17:13)
[2023-07-07] MEDS: ONDANSETRON 4MG 2ML VIAL IV SCH (17:20)
[2023-07-07 18:08] LABS: BASO % 0.2 % (0.0-1.0); HEMATOCRIT 35.8 % (42.0-52.0); LYMPH # 0.9 10^3/uL (1.5-5.0); LYMPH % 19.7 % (24.0-44.0); MEAN CORPUSCULAR HEMOGLOBIN 29.4 pg (27.0-33.0); MEAN CORPUSCULAR HGB CONC 31.3 g/dl (32.0-36.5); MONO # 0.2 10^3/uL (0.0-0.8); MONO % 4.4 % (2.0-8.0); NEUTROPHILS # 3.2 10^3/uL (1.5-8.5); NEUTROPHILS % 74.3 % (36.0-66.0); PLATELET COUNT, AUTOMATED 139 10^3/uL (150-450); RED BLOOD COUNT 3.81 10^6/uL (4.30-6.10); WHITE BLOOD COUNT 4.3 10^3/uL (4.0-10.0)
[2023-07-07 18:12] LABS: HEMOGLOBIN 11.2 g/dl (13.5-17.5)
[2023-07-07] MEDS ORDERED: hydrALAZINE 20MG/ML 1ML VIAL IV SCH (18:30)
[2023-07-07] MEDS: hydrALAZINE 20MG/ML 1ML VIAL IV SCH (19:33)
[2023-07-08] VITALS (68 sets, daily range): BP systolic 113–235; BP diastolic 48–99; TEMP 98.3–100; O2SAT 85–99
[2023-07-08] MEDS: hydrALAZINE 20MG/ML 1ML VIAL IV ONE (01:21)
[2023-07-08] MEDS ORDERED: ACETAMINOPHEN 650MG SUPP PR PRN (04:05)
[2023-07-08 05:07] LABS: HEMATOCRIT 28.3 % (42.0-52.0); HEMOGLOBIN 9.4 g/dl (13.5-17.5); MEAN CORPUSCULAR HEMOGLOBIN 30.8 pg (27.0-33.0); MEAN CORPUSCULAR HGB CONC 33.2 g/dl (32.0-36.5); MEAN CORPUSCULAR VOLUME 92.8 fl (80.0-96.0); PLATELET COUNT, AUTOMATED 142 10^3/uL (150-450); RED BLOOD COUNT 3.05 10^6/uL (4.30-6.10); WHITE BLOOD COUNT 5.5 10^3/uL (4.0-10.0)
[2023-07-08 05:37] LABS: CALCIUM LEVEL 7.7 MG/DL (8.5-10.1); CREATININE FOR GFR 3.34 MG/DL (0.70-1.30); GLOMERULAR FILTRATION RATE 20.5 (>56); MAGNESIUM LEVEL 1.9 MG/DL (1.8-2.4); PHOSPHORUS LEVEL 3.1 MG/DL (2.5-4.9); POTASSIUM SERUM 4.3 MMOL/L (3.5-5.1)
[2023-07-08] MEDS: LABETALOL 100MG/20ML VIAL IV STA (06:11)
[2023-07-08] MEDS: CARVedilol 12.5 MG TAB PO SCH (09:11)
[2023-07-08] MEDS ORDERED: LIDOCAINE 1% MDV 20ML VIAL As Ordered ONE (11:21)
[2023-07-08] MEDS: niCARdipine IV 40 MG in IV 1 EA IV SCH (13:10)
[2023-07-08] MEDS ORDERED: niCARdipine 40MG IN 200ML NACL IV BAG As Ordered ONE (13:11)
[2023-07-08] MEDS: SODIUM CHLORIDE 0.9% INJ 10 ML SYR IV SCH (17:26)
[2023-07-08] MEDS: SODIUM BICARBONATE 75 MEQ in NS 0.45% 1,000 ML IV SCH (22:42)
[2023-07-09] VITALS (37 sets, daily range): BP systolic 101–169; BP diastolic 35–76; TEMP 97.9–98.3; O2SAT 82–99
[2023-07-09 00:32] LABS: HEMATOCRIT 26.4 % (42.0-52.0); HEMOGLOBIN 8.5 g/dl (13.5-17.5)
[2023-07-09 04:57] LABS: HEMATOCRIT 24.6 % (42.0-52.0); MEAN CORPUSCULAR HEMOGLOBIN 30.3 pg (27.0-33.0); MEAN CORPUSCULAR HGB CONC 32.5 g/dl (32.0-36.5); MEAN CORPUSCULAR VOLUME 93.2 fl (80.0-96.0); PLATELET COUNT, AUTOMATED 110 10^3/uL (150-450); RED BLOOD COUNT 2.64 10^6/uL (4.30-6.10); WHITE BLOOD COUNT 3.7 10^3/uL (4.0-10.0)
[2023-07-09 05:29] LABS: ALBUMIN 2.8 G/DL (3.2-5.2); CALCIUM LEVEL 7.5 MG/DL (8.5-10.1); CREATININE FOR GFR 3.31 MG/DL (0.70-1.30); GLOMERULAR FILTRATION RATE 20.8 (>56); MAGNESIUM LEVEL 1.9 MG/DL (1.8-2.4); PHOSPHORUS LEVEL 2.9 MG/DL (2.5-4.9); POTASSIUM SERUM 4.2 MMOL/L (3.5-5.1)
[2023-07-09] MEDS: PANTOPRAZOLE 40MG VIAL IV SCH (08:15)
[2023-07-09] MEDS: CALCIUM GLUCONATE 1,000 MG in D5W MINI-BAG PLUS 100 ML IV ONE (08:37)
[2023-07-09] MEDS: ENVARSUS PO SCH (09:00)
[2023-07-09] MEDS: HEPARIN SOD (PORCINE) 5000UNITS/ML 1ML VIAL/SYRINGE SQ SCH (09:00)
[2023-07-09] MEDS: LABETALOL 100MG/20ML VIAL IV PRN (16:50)
[2023-07-09] MEDS: hydrALAZINE 20MG/ML 1ML VIAL IV PRN (16:51)
[2023-07-10] VITALS (37 sets, daily range): BP systolic 137–181; BP diastolic 63–82; TEMP 96.9–98.3; O2SAT 82–98
[2023-07-10 05:37] LABS: HEMATOCRIT 23.2 % (42.0-52.0); HEMOGLOBIN 7.4 g/dl (13.5-17.5); MEAN CORPUSCULAR HEMOGLOBIN 29.6 pg (27.0-33.0); MEAN CORPUSCULAR HGB CONC 31.9 g/dl (32.0-36.5); MEAN CORPUSCULAR VOLUME 92.8 fl (80.0-96.0); WHITE BLOOD COUNT 2.3 10^3/uL (4.0-10.0)
[2023-07-10 05:59] LABS: ALBUMIN 2.3 G/DL (3.2-5.2); CALCIUM LEVEL 7.3 MG/DL (8.5-10.1); CREATININE FOR GFR 3.18 MG/DL (0.70-1.30); GLOMERULAR FILTRATION RATE 21.7 (>56); MAGNESIUM LEVEL 1.8 MG/DL (1.8-2.4); PHOSPHORUS LEVEL 3.2 MG/DL (2.5-4.9); POTASSIUM SERUM 4.1 MMOL/L (3.5-5.1)
[2023-07-10 06:07] LABS: PLATELET COUNT, AUTOMATED 92 10^3/uL (150-450)
[2023-07-10 14:10] LABS: ABG BASE EXCESS -4.6 (-2.0-2.0); ABG HCO3 19.3 MMOL/L (22.0-26.0); ABG O2 SATURATION 89.5 % (95.0-99.0); ABG PARTIAL PRESSURE CO2 30.9 mmHg (35.0-45.0); ABG PARTIAL PRESSURE O2 55.9 mmHg (75.0-100.0); ABG STANDARD HCO3 20.5 MMOL/L. (22.0-26.0); ABG TOTAL CO2 20.2 MMOL/L (22.0-29.0); ABG pH (ARTERIAL) 7.413 UNITS (7.350-7.450)
[2023-07-10] MEDS: **hydrALAZINE HCL** 25 MG TAB PO SCH (14:30)
[2023-07-10] MEDS: ALBUTEROL SULFATE 2.5MG/0.5ML INH NEB SOLN NEB SCH (14:48)
[2023-07-10] MEDS: SODIUM BICARBONATE 325 MG TAB PO ONE (15:33)
[2023-07-10] MEDS: FUROSEMIDE 100MG/10ML VIAL IV ONE (15:33)
[2023-07-10] MEDS: SODIUM BICARBONATE 325 MG TAB PO SCH (20:09)
[2023-07-10] MEDS: **hydrALAZINE** 50 MG TAB PO SCH (23:03)
[2023-07-11] VITALS (20 sets, daily range): BP systolic 137–164; BP diastolic 63–75; TEMP 97.4–99.2; O2SAT 86–97
[2023-07-11 06:00] LABS: HEMATOCRIT 24.1 % (42.0-52.0); HEMOGLOBIN 7.9 g/dl (13.5-17.5); MEAN CORPUSCULAR HGB CONC 32.8 g/dl (32.0-36.5); MEAN CORPUSCULAR VOLUME 91.6 fl (80.0-96.0); RED BLOOD COUNT 2.63 10^6/uL (4.30-6.10); WHITE BLOOD COUNT 2.5 10^3/uL (4.0-10.0)
[2023-07-11 06:17] LABS: PLATELET COUNT, AUTOMATED 90 10^3/uL (150-450)
[2023-07-11 06:22] LABS: PERCENT SATURATION 13.3 % (19.7-50.0)
[2023-07-11 06:24] LABS: FERRITIN 31.5 NG/ML (10.5-307.3)
[2023-07-11 06:26] LABS: ALBUMIN 2.1 G/DL (3.2-5.2); CALCIUM LEVEL 7.3 MG/DL (8.5-10.1); CREATININE FOR GFR 3.17 MG/DL (0.70-1.30); GLOMERULAR FILTRATION RATE 21.8 (>56); MAGNESIUM LEVEL 1.8 MG/DL (1.8-2.4); PHOSPHORUS LEVEL 2.3 MG/DL (2.5-4.9); POTASSIUM SERUM 3.9 MMOL/L (3.5-5.1)
[2023-07-11] MEDS ORDERED: predniSONE 5 MG TAB PO SCH (09:00)
[2023-07-11] MEDS: FUROSEMIDE 100MG/10ML VIAL IV ONE (10:23)
[2023-07-11] MEDS: HYDROMORPHONE HCL 0.5 MG/ 0.5 ML SYRINGE IV PRN (17:45)
[2023-07-11] MEDS: IPRATROPIUM 0.5MG/ALBUTEROL 2.5MG INH SOL UD 3ML (DUONEB) NEB PRN (19:11)
[2023-07-11] MEDS: oxyCODONE 5MG TAB PO PRN (22:48)
[2023-07-12] VITALS (10 sets, daily range): BP systolic 136–172; BP diastolic 60–74; TEMP 97.4–98.9; O2SAT 90–95
[2023-07-12 05:16] LABS: HEMATOCRIT 24.4 % (42.0-52.0); MEAN CORPUSCULAR HEMOGLOBIN 30.1 pg (27.0-33.0); MEAN CORPUSCULAR HGB CONC 32.8 g/dl (32.0-36.5); MEAN CORPUSCULAR VOLUME 91.7 fl (80.0-96.0); RED BLOOD COUNT 2.66 10^6/uL (4.30-6.10); WHITE BLOOD COUNT 2.7 10^3/uL (4.0-10.0)
[2023-07-12 05:17] LABS: PLATELET COUNT, AUTOMATED 94 10^3/uL (150-450)
[2023-07-12 05:38] LABS: ALBUMIN 2.1 G/DL (3.2-5.2); CALCIUM LEVEL 7.2 MG/DL (8.5-10.1); CREATININE FOR GFR 3.41 MG/DL (0.70-1.30); GLOMERULAR FILTRATION RATE 20.1 (>56); MAGNESIUM LEVEL 1.7 MG/DL (1.8-2.4); PHOSPHORUS LEVEL 2.2 MG/DL (2.5-4.9); POTASSIUM SERUM 3.5 MMOL/L (3.5-5.1)
[2023-07-12] MEDS: MAG SULF 1GM/100ML (MAG RUN) 1 GM in IV 1 EA IV ONE (07:51)
[2023-07-12] MEDS: predniSONE 5 MG TAB PO SCH (10:19)
[2023-07-12] MEDS: SODIUM CHLORIDE 0.9% INJ 10 ML SYR IV PRN (23:10)
[2023-07-13] VITALS (14 sets, daily range): BP systolic 151–165; BP diastolic 65–86; TEMP 97–97.7; O2SAT 85–94
[2023-07-13] MEDS: MAGIC MOUTHWASH SUSPENSION BTL SS PRN (08:14)
[2023-07-13 08:47] LABS: BASO % 0.3 % (0.0-1.0); EOS % 0.7 % (0.0-3.0); HEMATOCRIT 24.9 % (42.0-52.0); HEMOGLOBIN 8.1 g/dl (13.5-17.5); LYMPH # 1.1 10^3/uL (1.5-5.0); LYMPH % 35.9 % (24.0-44.0); MEAN CORPUSCULAR HEMOGLOBIN 29.9 pg (27.0-33.0); MEAN CORPUSCULAR HGB CONC 32.5 g/dl (32.0-36.5); MEAN CORPUSCULAR VOLUME 91.9 fl (80.0-96.0); MONO # 0.2 10^3/uL (0.0-0.8); MONO % 6.6 % (2.0-8.0); NEUTROPHILS # 1.7 10^3/uL (1.5-8.5); NEUTROPHILS % 55.8 % (36.0-66.0); RED BLOOD COUNT 2.71 10^6/uL (4.30-6.10)
[2023-07-13 08:49] LABS: PLATELET COUNT, AUTOMATED 88 10^3/uL (150-450)
[2023-07-13] MEDS: PANTOPRAZOLE 40MG TAB (PROTONIX) PO SCH (09:22)
[2023-07-13 09:29] LABS: ALBUMIN 2.3 G/DL (3.2-5.2); ALKALINE PHOSPHATASE 38 U/L (46-116); ALT/SGPT < 9 U/L (7.0-40); AST/SGOT 8 U/L (<34); BILIRUBIN,DIRECT 0.1 MG/DL (<0.4); BILIRUBIN,TOTAL 0.2 MG/DL (0.3-1.2); BLOOD UREA NITROGEN 40 MG/DL (9-23); CALCIUM LEVEL 7.7 MG/DL (8.5-10.1); CARBON DIOXIDE LEVEL 22 MMOL/L (20-31); CHLORIDE LEVEL 108 MMOL/L (98-107); CREATININE FOR GFR 3.54 MG/DL (0.70-1.30); GLOMERULAR FILTRATION RATE 19.2 (>56); GLUCOSE, FASTING 93 MG/DL (60-100); MAGNESIUM LEVEL 1.9 MG/DL (1.8-2.4); PHOSPHORUS LEVEL 2.7 MG/DL (2.5-4.9); POTASSIUM SERUM 3.5 MMOL/L (3.5-5.1); SODIUM LEVEL 136 MMOL/L (136-145); TOTAL PROTEIN 4.7 G/DL (5.7-8.2)
[2023-07-14] VITALS (24 sets, daily range): BP systolic 135–160; BP diastolic 70–75; TEMP 97.3–97.7; O2SAT 83–96
[2023-07-14 06:09] LABS: ABG BASE EXCESS -3.9 (-2.0-2.0); ABG HCO3 20.2 MMOL/L (22.0-26.0); ABG O2 SATURATION 90.8 % (95.0-99.0); ABG PARTIAL PRESSURE O2 55.7 mmHg (75.0-100.0); ABG STANDARD HCO3 21.1 MMOL/L. (22.0-26.0); ABG TOTAL CO2 21.2 MMOL/L (22.0-29.0); ABG pH (ARTERIAL) 7.405 UNITS (7.350-7.450)
[2023-07-14 06:22] LABS: EOS % 0.7 % (0.0-3.0); HEMATOCRIT 24.7 % (42.0-52.0); HEMOGLOBIN 8.1 g/dl (13.5-17.5); LYMPH # 0.8 10^3/uL (1.5-5.0); LYMPH % 26.3 % (24.0-44.0); MEAN CORPUSCULAR HEMOGLOBIN 30.1 pg (27.0-33.0); MEAN CORPUSCULAR HGB CONC 32.8 g/dl (32.0-36.5); MEAN CORPUSCULAR VOLUME 91.8 fl (80.0-96.0); MONO # 0.2 10^3/uL (0.0-0.8); MONO % 7.4 % (2.0-8.0); NEUTROPHILS # 1.9 10^3/uL (1.5-8.5); NEUTROPHILS % 64.9 % (36.0-66.0); RED BLOOD COUNT 2.69 10^6/uL (4.30-6.10); WHITE BLOOD COUNT 2.9 10^3/uL (4.0-10.0)
[2023-07-14 06:25] LABS: PLATELET COUNT, AUTOMATED 97 10^3/uL (150-450)
[2023-07-14 06:28] LABS: INR 1.4; PROTHROMBIN TIME 16.7 SECONDS (12.5-14.5)
[2023-07-14 06:35] LABS: ALBUMIN 2.2 G/DL (3.2-5.2); CALCIUM LEVEL 7.3 MG/DL (8.5-10.1); CREATININE FOR GFR 3.7 MG/DL (0.70-1.30); GLOMERULAR FILTRATION RATE 18.2 (>56); PHOSPHORUS LEVEL 2.8 MG/DL (2.5-4.9); POTASSIUM SERUM 3.8 MMOL/L (3.5-5.1)
[2023-07-14 09:07] LABS: PROCALCITONIN 0.17 ng/ml
[2023-07-14] MEDS: ONDANSETRON 4MG 2ML VIAL IV PRN (10:03)
[2023-07-15] VITALS (9 sets, daily range): BP systolic 116–146; BP diastolic 68–78; TEMP 97.3–97.8; O2SAT 89–96
[2023-07-15 07:03] LABS: BASO % 0.4 % (0.0-1.0); EOS % 0.4 % (0.0-3.0); HEMATOCRIT 23.8 % (42.0-52.0); HEMOGLOBIN 7.7 g/dl (13.5-17.5); LYMPH # 0.7 10^3/uL (1.5-5.0); LYMPH % 26.9 % (24.0-44.0); MEAN CORPUSCULAR HEMOGLOBIN 30.2 pg (27.0-33.0); MEAN CORPUSCULAR HGB CONC 32.4 g/dl (32.0-36.5); MEAN CORPUSCULAR VOLUME 93.3 fl (80.0-96.0); MONO # 0.3 10^3/uL (0.0-0.8); MONO % 9.5 % (2.0-8.0); NEUTROPHILS # 1.6 10^3/uL (1.5-8.5); NEUTROPHILS % 61.7 % (36.0-66.0); RED BLOOD COUNT 2.55 10^6/uL (4.30-6.10); WHITE BLOOD COUNT 2.6 10^3/uL (4.0-10.0)
[2023-07-15 07:09] LABS: PLATELET COUNT, AUTOMATED 97 10^3/uL (150-450)
[2023-07-15 07:26] LABS: CALCIUM LEVEL 7.4 MG/DL (8.5-10.1); CREATININE FOR GFR 3.75 MG/DL (0.70-1.30); PHOSPHORUS LEVEL 3.1 MG/DL (2.5-4.9); POTASSIUM SERUM 3.6 MMOL/L (3.5-5.1)
[2023-07-15] MEDS: FUROSEMIDE 100MG/10ML VIAL IV ONE (11:10)
[2023-07-15] MEDS ORDERED: PIPERACILLIN/TAZOBACTAM SOD 2.25 GM in D5W MINI-BAG PLUS 50 ML IV SCH (12:35)
[2023-07-15] MEDS: PIPERACILLIN/TAZOBACTAM SOD 4.5 GM in D5W MINI-BAG PLUS 50 ML IV SCH (13:20)
[2023-07-15] MEDS: ACETYLCYSTEINE 20% 4 ML VIAL (200MG/ML) INH SCH (13:55)
[2023-07-16] VITALS (12 sets, daily range): BP systolic 115–128; BP diastolic 64–75; TEMP 97.5–97.9; O2SAT 84–97
[2023-07-16 07:07] LABS: BASO % 0.4 % (0.0-1.0); EOS % 0.7 % (0.0-3.0); HEMATOCRIT 24.6 % (42.0-52.0); LYMPH # 0.6 10^3/uL (1.5-5.0); LYMPH % 20.1 % (24.0-44.0); MEAN CORPUSCULAR HEMOGLOBIN 29.5 pg (27.0-33.0); MEAN CORPUSCULAR HGB CONC 32.5 g/dl (32.0-36.5); MEAN CORPUSCULAR VOLUME 90.8 fl (80.0-96.0); MONO # 0.2 10^3/uL (0.0-0.8); MONO % 7.2 % (2.0-8.0); NEUTROPHILS % 71.2 % (36.0-66.0); PLATELET COUNT, AUTOMATED 105 10^3/uL (150-450); RED BLOOD COUNT 2.71 10^6/uL (4.30-6.10); WHITE BLOOD COUNT 2.8 10^3/uL (4.0-10.0)
[2023-07-16 07:35] LABS: ALBUMIN 2.2 G/DL (3.2-5.2); CALCIUM LEVEL 7.7 MG/DL (8.5-10.1); CREATININE FOR GFR 3.74 MG/DL (0.70-1.30); POTASSIUM SERUM 3.8 MMOL/L (3.5-5.1)
[2023-07-16] MEDS: HEPARIN SOD (PORCINE) 5000UNITS/ML 1ML VIAL/SYRINGE SQ SCH (08:56)
[2023-07-16] MEDS: POTASSIUM CHLORIDE 10MEQ SR TABLET PO ONE (12:18)
[2023-07-16] MEDS: FUROSEMIDE 100MG/10ML VIAL IV ONE (12:19)
[2023-07-17] VITALS (10 sets, daily range): BP systolic 128–136; BP diastolic 66–71; TEMP 97.7–98.5; O2SAT 89–93
[2023-07-17 06:20] LABS: BASO % 0.3 % (0.0-1.0); EOS # 0.1 10^3/uL (0.0-0.5); EOS % 2.9 % (0.0-3.0); HEMATOCRIT 25.2 % (42.0-52.0); HEMOGLOBIN 8.1 g/dl (13.5-17.5); LYMPH # 0.6 10^3/uL (1.5-5.0); LYMPH % 17.5 % (24.0-44.0); MEAN CORPUSCULAR HEMOGLOBIN 29.2 pg (27.0-33.0); MEAN CORPUSCULAR HGB CONC 32.1 g/dl (32.0-36.5); MONO # 0.3 10^3/uL (0.0-0.8); MONO % 8.9 % (2.0-8.0); NEUTROPHILS # 2.2 10^3/uL (1.5-8.5); NEUTROPHILS % 70.1 % (36.0-66.0); PLATELET COUNT, AUTOMATED 105 10^3/uL (150-450); RED BLOOD COUNT 2.77 10^6/uL (4.30-6.10); WHITE BLOOD COUNT 3.1 10^3/uL (4.0-10.0)
[2023-07-17 06:28] LABS: ALBUMIN 2.1 G/DL (3.2-5.2); CALCIUM LEVEL 7.9 MG/DL (8.5-10.1); CREATININE FOR GFR 3.52 MG/DL (0.70-1.30); GLOMERULAR FILTRATION RATE 19.3 (>56); PHOSPHORUS LEVEL 2.7 MG/DL (2.5-4.9); POTASSIUM SERUM 3.8 MMOL/L (3.5-5.1)
[2023-07-17 06:31] LABS: ABG HCO3 21.9 MMOL/L (22.0-26.0); ABG O2 SATURATION 87.4 % (95.0-99.0); ABG PARTIAL PRESSURE CO2 33.5 mmHg (35.0-45.0); ABG PARTIAL PRESSURE O2 50.2 mmHg (75.0-100.0); ABG STANDARD HCO3 22.7 MMOL/L. (22.0-26.0); ABG TOTAL CO2 22.9 MMOL/L (22.0-29.0); ABG pH (ARTERIAL) 7.433 UNITS (7.350-7.450)
[2023-07-17] MEDS: predniSONE 20 MG TAB PO SCH (08:12)
[2023-07-17] MEDS: FUROSEMIDE 100MG/10ML VIAL IV ONE (13:55)
[2023-07-17] MEDS: SODIUM CHLORIDE NASAL 0.65% SPRAY BTL (OCEAN) SCH (14:02)
[2023-07-17] MEDS: LACTOBACILLUS ACIDOPHILUS CAP (BACID) PO SCH (17:46)
[2023-07-18] VITALS (13 sets, daily range): BP systolic 123–150; BP diastolic 64–78; TEMP 96.2–97.7; O2SAT 85–97
[2023-07-18] MEDS: SALIVA SUBSTITUTE(MOUTHKOTE) BTL MT PRN (00:13)
[2023-07-18 06:02] LABS: BASO % 0.4 % (0.0-1.0); EOS % 0.8 % (0.0-3.0); HEMATOCRIT 25.3 % (42.0-52.0); HEMOGLOBIN 8.1 g/dl (13.5-17.5); LYMPH # 0.6 10^3/uL (1.5-5.0); LYMPH % 23.2 % (24.0-44.0); MEAN CORPUSCULAR HEMOGLOBIN 28.7 pg (27.0-33.0); MEAN CORPUSCULAR VOLUME 89.7 fl (80.0-96.0); MONO # 0.2 10^3/uL (0.0-0.8); MONO % 9.3 % (2.0-8.0); NEUTROPHILS # 1.7 10^3/uL (1.5-8.5); NEUTROPHILS % 65.9 % (36.0-66.0); PLATELET COUNT, AUTOMATED 108 10^3/uL (150-450); RED BLOOD COUNT 2.82 10^6/uL (4.30-6.10); WHITE BLOOD COUNT 2.6 10^3/uL (4.0-10.0)
[2023-07-18 06:38] LABS: URIC ACID 10.1 MG/DL (3.7-9.2)
[2023-07-18 06:41] LABS: ALBUMIN 2.3 G/DL (3.2-5.2); CALCIUM LEVEL 8.2 MG/DL (8.5-10.1); CREATININE FOR GFR 3.46 MG/DL (0.70-1.30); GLOMERULAR FILTRATION RATE 19.7 (>56); PHOSPHORUS LEVEL 2.8 MG/DL (2.5-4.9); PTH INTACT 93.7 PG/ML (18.5-88.0)
[2023-07-18] MEDS: FUROSEMIDE 100MG/10ML VIAL IV ONE (12:13)
[2023-07-18] MEDS: ACETAMINOPHEN TAB 650MG DOSE (2X325MG) PO PRN (21:24)
[2023-07-19] VITALS (16 sets, daily range): BP systolic 119–142; BP diastolic 65–74; TEMP 97.2–97.7; O2SAT 85–99
[2023-07-19 06:31] LABS: BASO % 0.7 % (0.0-1.0); EOS % 0.3 % (0.0-3.0); HEMATOCRIT 26.4 % (42.0-52.0); HEMOGLOBIN 8.5 g/dl (13.5-17.5); LYMPH # 0.6 10^3/uL (1.5-5.0); MEAN CORPUSCULAR HGB CONC 32.2 g/dl (32.0-36.5); MEAN CORPUSCULAR VOLUME 90.1 fl (80.0-96.0); MONO # 0.2 10^3/uL (0.0-0.8); MONO % 6.6 % (2.0-8.0); NEUTROPHILS # 2.1 10^3/uL (1.5-8.5); NEUTROPHILS % 70.7 % (36.0-66.0); PLATELET COUNT, AUTOMATED 124 10^3/uL (150-450); RED BLOOD COUNT 2.93 10^6/uL (4.30-6.10); WHITE BLOOD COUNT 2.9 10^3/uL (4.0-10.0)
[2023-07-19 07:10] LABS: ALBUMIN 2.2 G/DL (3.2-5.2); CREATININE FOR GFR 3.39 MG/DL (0.70-1.30); GLOMERULAR FILTRATION RATE 20.2 (>56); POTASSIUM SERUM 3.9 MMOL/L (3.5-5.1)
[2023-07-19] MEDS: TAMSULOSIN 0.4 MG CAP PO SCH (10:25)
[2023-07-20] VITALS (9 sets, daily range): BP systolic 109–145; BP diastolic 67–76; TEMP 97.3–97.9; O2SAT 89–95
[2023-07-20 07:41] LABS: EOS % 0.3 % (0.0-3.0); HEMATOCRIT 26.8 % (42.0-52.0); HEMOGLOBIN 8.6 g/dl (13.5-17.5); LYMPH # 0.6 10^3/uL (1.5-5.0); LYMPH % 19.7 % (24.0-44.0); MEAN CORPUSCULAR HEMOGLOBIN 28.3 pg (27.0-33.0); MEAN CORPUSCULAR HGB CONC 32.1 g/dl (32.0-36.5); MEAN CORPUSCULAR VOLUME 88.2 fl (80.0-96.0); MONO # 0.2 10^3/uL (0.0-0.8); MONO % 6.4 % (2.0-8.0); NEUTROPHILS # 2.2 10^3/uL (1.5-8.5); NEUTROPHILS % 72.9 % (36.0-66.0); PLATELET COUNT, AUTOMATED 136 10^3/uL (150-450); RED BLOOD COUNT 3.04 10^6/uL (4.30-6.10)
[2023-07-20 08:17] LABS: ALBUMIN 2.3 G/DL (3.2-5.2); CALCIUM LEVEL 7.8 MG/DL (8.5-10.1); CREATININE FOR GFR 3.34 MG/DL (0.70-1.30); GLOMERULAR FILTRATION RATE 20.5 (>56); PHOSPHORUS LEVEL 3.4 MG/DL (2.5-4.9); POTASSIUM SERUM 3.6 MMOL/L (3.5-5.1)
[2023-07-20] MEDS: predniSONE 20 MG TAB PO SCH (08:45)
[2023-07-20] MEDS: FEBUXOSTAT 40 MG TABLET (ULORIC) PO SCH (08:46)
[2023-07-21] VITALS (8 sets, daily range): BP systolic 133–150; BP diastolic 68–78; TEMP 97.3–97.7; O2SAT 90–95
[2023-07-21 06:18] LABS: BASO % 0.4 % (0.0-1.0); EOS % 0.4 % (0.0-3.0); HEMOGLOBIN 8.4 g/dl (13.5-17.5); LYMPH # 0.4 10^3/uL (1.5-5.0); LYMPH % 17.9 % (24.0-44.0); MEAN CORPUSCULAR HEMOGLOBIN 28.7 pg (27.0-33.0); MEAN CORPUSCULAR HGB CONC 32.3 g/dl (32.0-36.5); MEAN CORPUSCULAR VOLUME 88.7 fl (80.0-96.0); MONO # 0.2 10^3/uL (0.0-0.8); MONO % 7.2 % (2.0-8.0); NEUTROPHILS # 1.7 10^3/uL (1.5-8.5); NEUTROPHILS % 73.7 % (36.0-66.0); PLATELET COUNT, AUTOMATED 139 10^3/uL (150-450); RED BLOOD COUNT 2.93 10^6/uL (4.30-6.10); WHITE BLOOD COUNT 2.4 10^3/uL (4.0-10.0)
[2023-07-21 06:44] LABS: ALBUMIN 2.4 G/DL (3.2-5.2); BLOOD UREA NITROGEN 46 MG/DL (9-23); CALCIUM LEVEL 7.8 MG/DL (8.5-10.1); CARBON DIOXIDE LEVEL 24 MMOL/L (20-31); CHLORIDE LEVEL 108 MMOL/L (98-107); CREATININE FOR GFR 3.29 MG/DL (0.70-1.30); GLOMERULAR FILTRATION RATE 20.9 (>56); GLUCOSE, FASTING 106 MG/DL (60-100); PHOSPHORUS LEVEL 3.8 MG/DL (2.5-4.9); POTASSIUM SERUM 3.6 MMOL/L (3.5-5.1); SODIUM LEVEL 137 MMOL/L (136-145)
[2023-07-21] MEDS: POTASSIUM CHLORIDE 10MEQ SR TABLET PO ONE (09:23)
[2023-07-21 09:39] LABS: ALKALINE PHOSPHATASE 31 U/L (46-116); ALT/SGPT < 9 U/L (7.0-40); AST/SGOT < 8 U/L (<34); BILIRUBIN,DIRECT 0.2 MG/DL (<0.4); BILIRUBIN,TOTAL 0.4 MG/DL (0.3-1.2); TOTAL PROTEIN 4.7 G/DL (5.7-8.2)
[2023-07-21] MEDS: FUROSEMIDE 100MG/10ML VIAL IV ONE (13:14)
[2023-07-21] MEDS: **hydrALAZINE** 50 MG TAB PO SCH (16:18)
[2023-07-22 04:50] VITALS: BP 141/76; TEMP 97.7; O2SAT 92
[2023-07-22 05:49] LABS: HEMATOCRIT 25.1 % (42.0-52.0); LYMPH # 0.4 10^3/uL (1.5-5.0); LYMPH % 16.1 % (24.0-44.0); MEAN CORPUSCULAR HGB CONC 31.9 g/dl (32.0-36.5); MEAN CORPUSCULAR VOLUME 87.8 fl (80.0-96.0); MONO # 0.2 10^3/uL (0.0-0.8); MONO % 6.2 % (2.0-8.0); NEUTROPHILS # 2.1 10^3/uL (1.5-8.5); NEUTROPHILS % 77.3 % (36.0-66.0); PLATELET COUNT, AUTOMATED 133 10^3/uL (150-450); RED BLOOD COUNT 2.86 10^6/uL (4.30-6.10); WHITE BLOOD COUNT 2.7 10^3/uL (4.0-10.0)
[2023-07-22 06:22] LABS: ALBUMIN 2.2 G/DL (3.2-5.2); CALCIUM LEVEL 7.9 MG/DL (8.5-10.1); CREATININE FOR GFR 3.22 MG/DL (0.70-1.30); GLOMERULAR FILTRATION RATE 21.4 (>56); PHOSPHORUS LEVEL 3.1 MG/DL (2.5-4.9)
[2023-07-22 10:07] VITALS: BP 155/80; TEMP 97.8; O2SAT 95
[2023-07-22] MEDS: FUROSEMIDE 100MG/10ML VIAL IV ONE (12:19)
[2023-07-22 14:09] VITALS: BP 138/73; TEMP 97.3; O2SAT 93
[2023-07-22 20:59] VITALS: BP 146/86; TEMP 97.9; O2SAT 93
[2023-07-23 05:12] VITALS: BP 152/82; TEMP 97.7; O2SAT 90
[2023-07-23 06:07] LABS: EOS % 0.4 % (0.0-3.0); HEMATOCRIT 25.3 % (42.0-52.0); LYMPH # 0.5 10^3/uL (1.5-5.0); LYMPH % 17.7 % (24.0-44.0); MEAN CORPUSCULAR HEMOGLOBIN 27.5 pg (27.0-33.0); MEAN CORPUSCULAR HGB CONC 31.6 g/dl (32.0-36.5); MEAN CORPUSCULAR VOLUME 86.9 fl (80.0-96.0); MONO # 0.2 10^3/uL (0.0-0.8); MONO % 6.4 % (2.0-8.0); NEUTROPHILS % 74.4 % (36.0-66.0); PLATELET COUNT, AUTOMATED 151 10^3/uL (150-450); RED BLOOD COUNT 2.91 10^6/uL (4.30-6.10); WHITE BLOOD COUNT 2.7 10^3/uL (4.0-10.0)
[2023-07-23 06:34] LABS: ALBUMIN 2.4 G/DL (3.2-5.2); CALCIUM LEVEL 8.2 MG/DL (8.5-10.1); GLOMERULAR FILTRATION RATE 23.2 (>56); PHOSPHORUS LEVEL 3.1 MG/DL (2.5-4.9); POTASSIUM SERUM 4.2 MMOL/L (3.5-5.1)
[2023-07-23 08:48] VITALS: BP 152/82
[2023-07-23] MEDS ORDERED: FLOM0.4C39 PO (09:06)
[2023-07-23 10:00] VITALS: BP 147/82; TEMP 97.7; O2SAT 91
[2023-07-23] MEDS ORDERED: OXYC-517 PO (11:08)
[2023-07-23] MEDS ORDERED: TRIPOIN11 EXT (11:40)
[2023-08-06] MEDS ORDERED: predniSONE 5 MG TAB PO SCH (09:00)
== END 2023-07-23 13:03 | disposition home health service (06) | DRG 391 ==
LOC: M ED 10:35 → M ED INP 14:41 → ENRESERV 15:26 → M MSPAV 16:17 → M ICU 07-07 14:23 → M MSPAV 07-12 22:52
PROVIDERS: ADMIT Family Medicine; ATTEND Student in an Organized Health Care Education/Training Program
PROC: 30233N1 Transfusion of Nonautologous Red Blood Cells into Peripheral Vein, Percutaneous Approach (ICD-10-PCS; 2023-07-07)
PROC: 093K8ZZ Control Bleeding in Nasal Mucosa and Soft Tissue, Via Natural or Artificial Opening Endoscopic (ICD-10-PCS; principal; 2023-07-07 09:00)
PROC: 02HV33Z Insertion of Infusion Device into Superior Vena Cava, Percutaneous Approach (ICD-10-PCS; 2023-07-09)
PROC: 02HV33Z Insertion of Infusion Device into Superior Vena Cava, Percutaneous Approach (ICD-10-PCS; 2023-07-16)
DX: R10.11 Right upper quadrant pain (principal); J96.01 Acute respiratory failure with hypoxia; I50.43 Acute on chronic combined systolic (congestive) and diastolic (congestive) heart failure; J18.9 Pneumonia, unspecified organism; N17.9 Acute kidney failure, unspecified; D68.59 Other primary thrombophilia; Q44.6 Cystic disease of liver; I13.0 Hypertensive heart and chronic kidney disease with heart failure and stage 1 through stage 4 chronic kidney disease, or unspecified chronic kidney disease; E87.22 Chronic metabolic acidosis; Z94.0 Kidney transplant status; Q61.3 Polycystic kidney, unspecified; D61.818 Other pancytopenia; N18.4 Chronic kidney disease, stage 4 (severe); D62 Acute posthemorrhagic anemia; D84.9 Immunodeficiency, unspecified; D47.Z1 Post-transplant lymphoproliferative disorder (PTLD); J98.11 Atelectasis; K92.0 Hematemesis; K92.1 Melena; E66.01 Morbid (severe) obesity due to excess calories; K76.89 Other specified diseases of liver; Z90.5 Acquired absence of kidney; M10.9 Gout, unspecified; G47.33 Obstructive sleep apnea (adult) (pediatric); R16.1 Splenomegaly, not elsewhere classified; J44.9 Chronic obstructive pulmonary disease, unspecified; R04.0 Epistaxis; J45.909 Unspecified asthma, uncomplicated; F32.A Depression, unspecified; I16.0 Hypertensive urgency; D63.1 Anemia in chronic kidney disease; E87.70 Fluid overload, unspecified; D69.6 Thrombocytopenia, unspecified; Z79.899 Other long term (current) drug therapy; Z88.5 Allergy status to narcotic agent; Z91.040 Latex allergy status; I27.20 Pulmonary hypertension, unspecified; Z85.828 Personal history of other malignant neoplasm of skin

== ENCOUNTER 2023-07-28 17:08 | Emergency (ER) | payer OTHER ==
[~2023-07-28] VITALS: Ht 185.4 cm; Wt 105.9 kg
[~2023-07-28 17:08] MED LIST changes: +OXYC-517 PO; +TRIPOIN11 EXT
[2023-07-28 18:54] LABS: EOS % 1.2 % (0.0-3.0); HEMATOCRIT 26.6 % (42.0-52.0); HEMOGLOBIN 8.2 g/dl (13.5-17.5); LYMPH # 0.7 10^3/uL (1.5-5.0); LYMPH % 28.2 % (24.0-44.0); MEAN CORPUSCULAR HEMOGLOBIN 26.9 pg (27.0-33.0); MEAN CORPUSCULAR HGB CONC 30.8 g/dl (32.0-36.5); MEAN CORPUSCULAR VOLUME 87.2 fl (80.0-96.0); MONO # 0.3 10^3/uL (0.0-0.8); NEUTROPHILS # 1.6 10^3/uL (1.5-8.5); NEUTROPHILS % 60.2 % (36.0-66.0); PLATELET COUNT, AUTOMATED 112 10^3/uL (150-450); RED BLOOD COUNT 3.05 10^6/uL (4.30-6.10); WHITE BLOOD COUNT 2.6 10^3/uL (4.0-10.0)
[2023-07-28 19:06] LABS: INR 1.2; PARTIAL THROMBOPLASTIN TIME 30.2 SECONDS (24.8-34.2); PROTHROMBIN TIME 14.8 SECONDS (12.5-14.5)
[2023-07-28 19:18] LABS: C REACTIVE PROTEIN QUANTITATIV 1.9 MG/DL (<1.0)
[2023-07-28 19:20] LABS: ALBUMIN 2.7 G/DL (3.2-5.2); BILIRUBIN,DIRECT 0.2 MG/DL (<0.4); BILIRUBIN,TOTAL 0.4 MG/DL (0.3-1.2); CALCIUM LEVEL 8.2 MG/DL (8.5-10.1); CK-MB VALUE MASS 3.5 NG/ML (<3.6); CREATININE FOR GFR 3.21 MG/DL (0.70-1.30); GLOMERULAR FILTRATION RATE 21.5 (>56); MB/CK RELATIVE INDEX 13.46 (< OR =4); POTASSIUM SERUM 4.2 MMOL/L (3.5-5.1); TOTAL PROTEIN 5.5 G/DL (5.7-8.2)
[2023-07-28] MEDS: ONDANSETRON 4MG 2ML VIAL IV ONE (19:23)
[2023-07-28] MEDS: NS 500 ML IV ONE (19:23)
[2023-07-28] MEDS: HYDROMORPHONE HCL 0.5 MG/ 0.5 ML SYRINGE IV ONE (19:24)
[2023-07-28 19:28] LABS: RSV AMPLIFICATION NEGATIVE (NEGATIVE)
[2023-07-28 22:47] VITALS: BP 132/69; TEMP 98; O2SAT 94
== END 2023-07-28 22:42 | disposition short-term general hospital (02) ==
LOC: M ED 17:08
DX: K81.0 Acute cholecystitis (principal); N18.9 Chronic kidney disease, unspecified; Z88.5 Allergy status to narcotic agent; Z91.041 Radiographic dye allergy status; Z94.0 Kidney transplant status; Z87.891 Personal history of nicotine dependence; Z86.79 Personal history of other diseases of the circulatory system; Z79.82 Long term (current) use of aspirin; Z79.811 Long term (current) use of aromatase inhibitors; Z79.899 Other long term (current) drug therapy
CPT/HCPCS: 36415; 74176; 76776; 80048; 80076; 82150; 82550; 82553; 83605; 83690; 84484; 85025; 85610; 85730; 86140; 86850; 86900; 86901; 87040; 87631; 93005; 93041; 96361; 96374; 96375; 99285; J1170; J2405

== ENCOUNTER 2023-10-16 22:47 | Emergency (ER) | payer OTHER ==
[~2023-10-16] VITALS: Ht 185.4 cm; Wt 100.5 kg
[~2023-10-16 22:47] MED LIST changes: +B-12100010 PO; +DIPH1TAB81; +DIPH1TAB81 PO; -DIPH2.5T15; -DIPH2.5T15 PO; +DOXY-440 IV; -DOXY-444 IV; +FAMO10TA50 PO; +FERR325T3 PO; +TORS10TA3 PO
[2023-10-17 00:29] LABS: ALBUMIN 2.9 G/DL (3.2-5.2); BILIRUBIN,TOTAL 0.3 MG/DL (0.3-1.2); CALCIUM LEVEL 8.7 MG/DL (8.5-10.1); CREATININE FOR GFR 2.32 MG/DL (0.70-1.30); GLOMERULAR FILTRATION RATE 31.3 (>56); POTASSIUM SERUM 4.9 MMOL/L (3.5-5.1); TOTAL PROTEIN 5.7 G/DL (5.7-8.2)
[2023-10-17 01:05] LABS: BASO % 0.5 % (0.0-1.0); EOS # 0.1 10^3/uL (0.0-0.5); HEMOGLOBIN 12.7 g/dl (13.5-17.5); LYMPH # 1.5 10^3/uL (1.5-5.0); LYMPH % 36.8 % (24.0-44.0); MEAN CORPUSCULAR HEMOGLOBIN 27.2 pg (27.0-33.0); MEAN CORPUSCULAR VOLUME 87.8 fl (80.0-96.0); MONO # 0.3 10^3/uL (0.0-0.8); NEUTROPHILS # 2.1 10^3/uL (1.5-8.5); NEUTROPHILS % 53.4 % (36.0-66.0); PLATELET COUNT, AUTOMATED 104 10^3/uL (150-450); RED BLOOD COUNT 4.67 10^6/uL (4.30-6.10)
[2023-10-17] MEDS: METOCLOPRAMIDE INJ 10MG/2ML VIAL IV ONE (01:45)
[2023-10-17] MEDS: methylPREDNISolone 125MG 2ML VIAL IV ONE (01:45)
[2023-10-17] MEDS: diphenhydrAMINE 50MG/ML VIAL IV ONE (01:46)
[2023-10-17 02:27] VITALS: BP 218/101
[2023-10-17] MEDS: amLODIPine 5 MG TAB PO ONE (02:27)
[2023-10-17] MEDS ORDERED: NORV5TAB PO (03:58)
[2023-10-17 04:00] VITALS: BP 142/78; TEMP 98; O2SAT 95
== END 2023-10-17 04:15 | disposition home or self-care (01) ==
LOC: M ED 22:47
DX: I16.0 Hypertensive urgency (principal); I45.81 Long QT syndrome; N18.9 Chronic kidney disease, unspecified; Z91.041 Radiographic dye allergy status; Z88.5 Allergy status to narcotic agent; Z79.82 Long term (current) use of aspirin; Z79.83 Long term (current) use of bisphosphonates; Z79.52 Long term (current) use of systemic steroids; Z79.899 Other long term (current) drug therapy
CPT/HCPCS: 70450; 71045; 80053; 83880; 85025; 93005; 96374; 96375; 99284; J1200; J2765; J2919

== ENCOUNTER 2024-01-22 19:27 | Emergency (ER) | payer OTHER ==
[~2024-01-22] VITALS: Ht 185.4 cm; Wt 98.7 kg
[~2024-01-22 19:27] MED LIST changes: +BYST1TAB2 PO; -BYST5TAB2 PO; +NORV5TAB PO
[2024-01-22] MEDS: PERCOCET 5MG/325MG TAB PO ONE (21:14)
[2024-01-22] MEDS ORDERED: OXYC7.5T3 PO (21:53)
[2024-01-22 22:11] VITALS: BP 183/88; TEMP 97.7; O2SAT 95
== END 2024-01-22 22:14 | disposition home or self-care (01) ==
LOC: M ED 19:27
DX: S46.011A Strain of muscle(s) and tendon(s) of the rotator cuff of right shoulder, initial encounter (principal); M25.511 Pain in right shoulder; X50.0XXA Overexertion from strenuous movement or load, initial encounter; M19.011 Primary osteoarthritis, right shoulder; Z88.5 Allergy status to narcotic agent; Z91.041 Radiographic dye allergy status; Y92.009 Unspecified place in unspecified non-institutional (private) residence as the place of occurrence of the external cause; Y93.89 Activity, other specified; Y99.9 Unspecified external cause status; Z79.82 Long term (current) use of aspirin; Z79.899 Other long term (current) drug therapy

== ENCOUNTER → 2024-04-27 | Outpatient (REF) | payer MEDICARE ==
[~2024-04-27] MED LIST changes: +NEOM28OI27 EXT; +OXYC7.5T3 PO; +TACR0.5C3 PO; -TRIPOIN11 EXT
== END ==
LOC: M LAB REF 16:47
PROVIDERS: ATTEND Nurse Practitioner Family
DX: N39.0 Urinary tract infection, site not specified (principal)

== ENCOUNTER → 2024-04-27 | Outpatient (CLI) | payer MEDICARE | LOC: M RAD 12:25 | PROVIDERS: ATTEND Nurse Practitioner Family | DX: N18.5 Chronic kidney disease, stage 5 (principal); N20.0 Calculus of kidney; Z94.0 Kidney transplant status ==

== ENCOUNTER → 2024-05-08 | Outpatient (CLI) | payer MEDICARE | LOC: M WHC 13:18 | PROVIDERS: ATTEND Nurse Practitioner Family | DX: M81.0 Age-related osteoporosis without current pathological fracture (principal) ==

== ENCOUNTER → 2024-05-08 | Outpatient (CLI) | payer MEDICARE | LOC: M RAD 16:02 | PROVIDERS: ATTEND Surgery Trauma Surgery | DX: K43.2 Incisional hernia without obstruction or gangrene (principal); K76.89 Other specified diseases of liver ==

== ENCOUNTER → 2024-08-22 | Outpatient (REF) | payer MEDICARE ==
[~2024-08-22] MED LIST changes: +CALC500T38 PO; +TACR1CAP3 PO
== END ==
LOC: M LAB REF 17:06
PROVIDERS: ATTEND Nurse Practitioner Family
DX: N39.0 Urinary tract infection, site not specified (principal)

== ENCOUNTER 2024-09-08 05:41 | Emergency (ER) | payer MEDICARE ==
[~2024-09-08] VITALS: Ht 185.4 cm; Wt 110.2 kg
[2024-09-08 07:23] LABS: KETONE, URINE AUTO RFX NEGATIVE (NEGATIVE); NITRITE, URINE AUTO RFX NEGATIVE (NEGATIVE); RBC, URINE AUTO RFX TNTC /HPF (0-3); SQUAM EPITHELIAL CELL UR AURFX 0 /HPF (0-6); WBC, URINE AUTO RFX 6 /HPF (0-3)
[2024-09-08 07:24] LABS: LEUKOCYTE ESTERASE UR AUTO RFX TRACE (NEGATIVE)
[2024-09-08 09:02] VITALS: BP 171/83; TEMP 96.6; O2SAT 97
== END 2024-09-08 09:11 | disposition home or self-care (01) ==
LOC: M ED 05:41
DX: R33.9 Retention of urine, unspecified (principal); I10 Essential (primary) hypertension; N40.0 Benign prostatic hyperplasia without lower urinary tract symptoms; N18.9 Chronic kidney disease, unspecified; Z88.5 Allergy status to narcotic agent; Z91.041 Radiographic dye allergy status; Z79.82 Long term (current) use of aspirin; Z79.83 Long term (current) use of bisphosphonates; Z79.899 Other long term (current) drug therapy; Z79.1 Long term (current) use of non-steroidal anti-inflammatories (NSAID)

== ENCOUNTER 2024-12-18 17:25 | Emergency (ER) | payer MEDICARE ==
[~2024-12-18] VITALS: Ht 185.4 cm; Wt 109.2 kg
[~2024-12-18 17:25] MED LIST changes: +ACYC-438 PO; -ACYC1TAB PO; -FLOM0.4C39 PO; +TAMS-18 PO
[2024-12-18 17:31] VITALS: BP 184/90; TEMP 98.2; O2SAT 97
[2024-12-18 22:06] LABS: BASO # 0.0 10^3/uL (0.0-0.2); BASO % 0.5 % (0.0-1.0); EOS # 0.1 10^3/uL (0.0-0.5); EOS % 1.4 % (0.0-3.0); LYMPH # 2.1 10^3/uL (1.5-5.0); LYMPH % 32.9 % (24.0-44.0); MONO # 0.4 10^3/uL (0.0-0.8); MONO % 6.7 % (2.0-8.0); NEUTROPHILS # 3.7 10^3/uL (1.5-8.5); NEUTROPHILS % 57.4 % (36.0-66.0); PLATELET COUNT, AUTOMATED 123 10^3/uL (150-450)
[2024-12-18 22:20] LABS: ERYTHROCYTE SEDIMENTATION RATE 6 mm/hr (0-20)
[2024-12-18 22:23] LABS: INR 0.99
[2024-12-18 22:40] LABS: C REACTIVE PROTEIN QUANTITATIV < 0.50 MG/DL (<1.0)
[2024-12-18 22:41] LABS: ALT/SGPT 21 U/L (7.0-40); AST/SGOT 30 U/L (<34); CALCIUM LEVEL 9.3 MG/DL (8.5-10.1); CARBON DIOXIDE LEVEL 24 MMOL/L (20-31); CHLORIDE LEVEL 106 MMOL/L (98-107); CREATININE FOR GFR 2.91 MG/DL (0.70-1.30); GLOMERULAR FILTRATION RATE 24.5 (>56); POTASSIUM SERUM 5.3 MMOL/L (3.5-5.1); SODIUM LEVEL 142 MMOL/L (136-145)
== END 2024-12-19 01:52 | disposition left against medical advice (07) ==
LOC: M ED 17:25
DX: Z53.21 Procedure and treatment not carried out due to patient leaving prior to being seen by health care provider (principal)

== ENCOUNTER → 2024-12-19 | Outpatient (REF) | payer MEDICARE ==
[2024-12-19 18:49] LABS: TOTAL PROTEIN,RANDOM URINE 52.5 MG/DL (0.0-14.0)
== END ==
LOC: M LAB REF 17:00
PROVIDERS: ATTEND Nurse Practitioner Family
DX: R80.9 Proteinuria, unspecified (principal)

== ENCOUNTER 2025-02-06 14:04 | Emergency (ER) | payer MEDICARE ==
[~2025-02-06] VITALS: Ht 185.4 cm; Wt 109.4 kg
[2025-02-06 16:28] LABS: APPEARANCE, URINE HAZY (CLEAR); BACTERIA, URINE AUTO NEGATIVE (NEGATIVE); BILIRUBIN, URINE AUTO NEGATIVE (NEGATIVE); BLOOD, URINE BLOOD 1+ (NEGATIVE); GLUCOSE, URINE (UA) AUTO NEGATIVE (NEGATIVE); KETONE, URINE AUTO NEGATIVE (NEGATIVE); LEUKOCYTE ESTERASE, URINE AUTO NEGATIVE (NEGATIVE); MUCUS, URINE SMALL (NEGATIVE); NITRITE, URINE AUTO NEGATIVE (NEGATIVE); PROTEIN, URINE AUTO 1+ mg/dL (NEGATIVE); RBC, URINE AUTO 12 /HPF (0-3); SPECIFIC GRAVITY URINE AUTO 1.011 (1.002-1.035); SQUAMOUS EPITHELIAL CELL UR AU 1 /HPF (0-6); UROBILINOGEN, URINE AUTO 0.2 mg/dL (0.0-2.0); WBC, URINE AUTO 7 /HPF (0-3)
[2025-02-06 16:30] LABS: BASO # 0.0 10^3/uL (0.0-0.2); BASO % 0.4 % (0.0-1.0); EOS # 0.0 10^3/uL (0.0-0.5); EOS % 0.7 % (0.0-3.0); LYMPH # 1.6 10^3/uL (1.5-5.0); LYMPH % 29.5 % (24.0-44.0); MONO # 0.3 10^3/uL (0.0-0.8); MONO % 6.2 % (2.0-8.0); NEUTROPHILS # 3.5 10^3/uL (1.5-8.5); NEUTROPHILS % 63.0 % (36.0-66.0); PLATELET COUNT, AUTOMATED 105 10^3/uL (150-450)
[2025-02-06] MEDS: LIDOCAINE 5% PATCH TD ONE (17:22)
[2025-02-06] MEDS: METHOCARBAMOL 1,000 MG/10 ML VIAL IV ONE (17:22)
[2025-02-06] MEDS ORDERED: PERC5TAB12 PO (19:08)
[2025-02-06 19:17] VITALS: BP 178/88; TEMP 97.5; O2SAT 96
== END 2025-02-06 19:34 | disposition home or self-care (01) ==
LOC: M ED 14:04
DX: M54.41 Lumbago with sciatica, right side (principal); I25.2 Old myocardial infarction; R51.9 Headache, unspecified; Z94.0 Kidney transplant status; Z86.79 Personal history of other diseases of the circulatory system; Z91.041 Radiographic dye allergy status; Z88.5 Allergy status to narcotic agent; Z79.82 Long term (current) use of aspirin; Z79.83 Long term (current) use of bisphosphonates; Z79.52 Long term (current) use of systemic steroids; Z79.899 Other long term (current) drug therapy
CPT/HCPCS: 80047; 81001; 85025; 96374; 96375; 99284; J1100; J2800; J3010